=== PATIENT | female | born 1955 | race Caucasian/White ===

== ENCOUNTER → 2024-09-05 | Outpatient (CLI) | payer MEDICARE, BC, SELFPAY ==
--- NOTE | 2024-09-05 12:27 | EKG_ITS ---
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
[2024-09-05 12:32] LABS: Basophils % (Auto) 1 % (0-2.5); Eosinophils # (Auto) 0.1 Thou/mm3 (0.0-0.5); Eosinophils % (Auto) 2 % (0-10); Hematocrit 39.9 % (36.0-46.0); Immature Granulocytes % (Auto) 0 % (0-0); Immature Granulocytes Auto 0.02 Thou/mm3 (0.00-0.00); Lymphocytes # (Auto) 0.8 Thou/mm3 (1.0-4.8); Lymphocytes % (Auto) 16 % (10-50); Mean Corpuscular HGB Conc 32.6 g/dl (31.0-37.0); Mean Corpuscular Hemoglobin 27.6 pg (25.0-35.0); Mean Corpuscular Volume 85 fL (80-100); Monocytes # (Auto) 0.5 Thou/mm3 (0.0-0.8); Monocytes % (Auto) 10 % (0-12); Neutrophils # (Auto) 3.5 Thou/mm3 (1.8-7.7); Neutrophils % (Auto) 71 % (37-80); Nucleated Red Blood Cell % 0 /100 WBC (0); Platelet Count 285 Thou/mm3 (140-440); Red Blood Count 4.71 Miln/mm3 (4.00-5.20)
[2024-09-05 12:40] LABS: Partial Thromboplastin Time 29.3 Seconds (22.0-36.0); Prothrombin Time 10.6 Seconds (9.0-12.2)
[2024-09-05 12:44] LABS: Alanine Aminotransferase 10 U/L (10-49); Albumin, Serum 4.4 gm/dL (3.4-4.8); Albumin/Globulin Ratio 1.6 (1.2-2.2); Alkaline Phosphatase 101 U/L (46-116); Anion Gap 7 (7-16); Aspartate Amino Transferase 19 U/L (0-34); BUN/Creatinine Ratio 19 Ratio (12-20); Bilirubin,Total 0.4 mg/dL (0.3-1.2); Blood Urea Nitrogen 21 mg/dL (9-23); Calcium 10.5 mg/dL (8.3-10.6); Calcium (Corrected) 10.5 mg/dL (8.5-10.1); Carbon Dioxide 32.4 mMol/L (20.0-31.0); Chloride 102 mMol/L (98-107); Creatinine (Component) 1.1 mg/dL (0.6-1.3); Globulin 2.7 gm/dL (2.3-3.5); Glucose 109 mg/dL (74-106); Osmolality,Calculated 285 (275-295); Potassium 4.5 mMol/L (3.4-5.1); Sodium 141 mMol/L (136-145); Total Protein 7.1 gm/dL (5.7-8.2); eGFR 55 See Note
--- NOTE | 2024-09-05 13:30 | XR_ITS ---
Examination: PA lateral chest 2 views TECHNIQUE: Upright AP lateral chest 2 views Exam date and time: September 05, 2024 1343 hours Comparison August 16, 2023 INDICATIONS: Coughing congestion 2 weeks. FINDINGS: Normal heart size Mild hyperexpansion No pneumonia Retrocardiac gastric hernia IMPRESSION: Mild hyperexpansion Negative for pneumonia
== END | disposition home or self-care (01) ==
PROVIDERS: PCP Family Medicine; Referring Provider Family Medicine; Visit Provider Radiology Diagnostic Radiology
DX: Z01.810 Encounter for preprocedural cardiovascular examination (principal); J98.4 Other disorders of lung
CPT/HCPCS: 36415; 71046; 80053; 85025; 85610; 85730; 93005

== ENCOUNTER → 2024-09-16 | Outpatient (CLI) | payer MEDICARE, BC, SELFPAY ==
--- NOTE | 2024-09-16 08:00 | XR_ITS ---
Examination: Breast ultrasound complete, bilateral Date and time of exam: September 16, 2024 0828 hours Indications: BI-RADS 3 probably benign nodule 12:00 position left breast on mammogram March 15, 2024 Technique: Real-time grayscale ultrasonographic imaging bilateral breasts, including all 4 quadrants as well as nipple retroareolar and axillary regions. Findings: No cystic or solid mass involving either breast IMPRESSION: BI-RADS Category 1: Negative study
--- NOTE | 2024-09-16 09:00 | XR_ITS ---
Examination: Diagnostic digital mammography, bilateral Computer aided detection 3-D breast Tomosynthesis, bilateral Date and time of exam: September 16, 2024 0841 hours INDICATIONS: Mammogram August 03, 2023 12 mm nodule 12:00 position left breast Technique: Nonmagnified MLO, CC views of the breasts to been obtained, reconstructed from 3-D Tomosynthesis images. R2 computer aided detection program utilized for evaluation of suspicious masses and/or abnormal calcifications. 3-D Tomosynthesis images obtained. Findings: The breast is heterogeneously dense, which may obscure small masses 12:00 focal asymmetry appears stable compared to July 31, 2023 Benign calcifications Impression: BI-RADS Category 3: Probably benign findings Recommend 1 additional 6 month left mammogram follow-up to document stability of focal asymmetry 12:00 position left breast.
== END | disposition home or self-care (01) ==
LOC: CDIM 08:01
PROVIDERS: PCP Family Medicine; Referring Provider Specialist; Visit Provider Specialist
DX: R92.333 Mammographic heterogeneous density, bilateral breasts (principal); N64.89 Other specified disorders of breast
CPT/HCPCS: 76641; 77062; 77066; G0279

== ENCOUNTER 2024-10-02 22:08 | Emergency (ER) | payer MEDICARE, BC, SELFPAY ==
[2024-10-02 22:09] VITALS: BP 126/75; PULSE 93; RESP 18; TEMP 38.3; O2SAT 94
[2024-10-02 22:10] VITALS: BMI 22.2
[2024-10-02 22:13] VITALS: PULSE 102; O2SAT 94
--- NOTE | 2024-10-02 23:14 | PD.EDRME ---
Rapid Medical Screening Exam RME Arrival date/time: 10/02/24 22:08 69-year-old female with a history of urostomy, bladder cancer, colon cancer presents to the emergency room with a chief complaint of a fever, fatigue x 1 day. I have greeted and performed a focused initial assessment of this patient. A comprehensive ED assessment and evaluation of the patient, analysis of all test results, and completion of the medical decision making process will be conducted by additional ED providers. Chief Complaint: Fever Vital signs: Vital Signs Temperature 101.0 F H 10/02/24 22:09 Pulse Rate 93 10/02/24 22:09 Respiratory Rate 18 10/02/24 22:09 Blood Pressure 126/75 10/02/24 22:09 Pulse Oximetry (%) 94 L 10/02/24 22:09 Oxygen Delivery Method Room Air 10/02/24 22:09 Vital signs reviewed by provider: Yes
[2024-10-02 23:22] VITALS: TEMP 38.3
[2024-10-02] MEDS: ACETAMINOPHEN 500 MG TABLET 1000 MG PO (23:22)
[2024-10-02 23:34] LABS: Lactate (Lactic Acid) 0.7 mMol/L (0.4-2.0)
[2024-10-02 23:42] LABS: Basophils % (Auto) 0 % (0-2.5); Eosinophils # (Auto) 0.2 Thou/mm3 (0.0-0.5); Eosinophils % (Auto) 2 % (0-10); Hematocrit 33.6 % (36.0-46.0); Hemoglobin 10.9 g/dL (12.0-16.0); Immature Granulocytes % (Auto) 0 % (0-0); Immature Granulocytes Auto 0.04 Thou/mm3 (0.00-0.00); Lymphocytes # (Auto) 0.6 Thou/mm3 (1.0-4.8); Lymphocytes % (Auto) 5 % (10-50); Mean Corpuscular HGB Conc 32.4 g/dl (31.0-37.0); Mean Corpuscular Hemoglobin 27.5 pg (25.0-35.0); Mean Corpuscular Volume 85 fL (80-100); Monocytes # (Auto) 0.9 Thou/mm3 (0.0-0.8); Monocytes % (Auto) 8 % (0-12); Neutrophils # (Auto) 8.9 Thou/mm3 (1.8-7.7); Neutrophils % (Auto) 83 % (37-80); Nucleated Red Blood Cell % 0 /100 WBC (0); Platelet Count 314 Thou/mm3 (140-440); RDW Standard Deviation 43.2 fL (36.4-46.3); Red Blood Count 3.97 Miln/mm3 (4.00-5.20); White Blood Count 10.7 Thou/mm3 (3.6-11.0)
[2024-10-03 00:03] LABS: Alanine Aminotransferase 12 U/L (10-49); Albumin, Serum 4.4 gm/dL (3.4-4.8); Albumin/Globulin Ratio 1.6 (1.2-2.2); Alkaline Phosphatase 147 U/L (46-116); Anion Gap 9 (7-16); Aspartate Amino Transferase 14 U/L (0-34); BUN/Creatinine Ratio 11 Ratio (12-20); Bilirubin,Total 0.3 mg/dL (0.3-1.2); Blood Urea Nitrogen 12 mg/dL (9-23); Calcium 9.6 mg/dL (8.3-10.6); Calcium (Corrected) 9.6 mg/dL (8.5-10.1); Chloride 103 mMol/L (98-107); Creatinine (Component) 1.1 mg/dL (0.6-1.3); Estimated Creatinine Clearance 46.5 mL/min (>60); Globulin 2.7 gm/dL (2.3-3.5); Glucose 127 mg/dL (74-106); Osmolality,Calculated 279 (275-295); Potassium 3.9 mMol/L (3.4-5.1); Sodium 139 mMol/L (136-145); Total Protein 7.1 gm/dL (5.7-8.2); eGFR 55 See Note
[2024-10-03 00:06] LABS: Procalcitonin 0.18 ng/ml (0.0-0.49)
[2024-10-03 00:33] VITALS: TEMP 36.9
[2024-10-03 00:36] LABS: Collection Type, Urine Clean Catch
[2024-10-03 00:49] LABS: Bacteria,Urine 2+; Bilirubin,Urine Negative (Negative); Blood,Urine 3+ (Negative); Budding Yeast,Urine Present; Glucose, Urine Negative (Negative); Ketones,Urine Negative (Negative); Leukocyte Esterase,Urine Positive (Negative); Nitrite,Urine Positive (Negative); PH,Urine 6.5 (5.0-7.0); Protein,Urine 1+ (Neg - Trace); RBC,Urine 72 /hpf (0-3); Specific Gravity,Urine 1.013 (1.001-1.035); Squamous Epithelial Cell,Urine < 1 /hpf (0-5); Urobilinogen,Urine Negative mg/dL (0.0-1.0); WBC,Urine 182 /hpf (0-5)
--- NOTE | 2024-10-03 00:49 | PD.EDFEVER ---
ED Fever RME/HPI General Chief Complaint: Fever Stated Complaint: FEVER Arrival date/time: 10/02/24 22:08 Limitations: no limitations RME / HPI RME / HPI Narrative: 10/02/24 22:08 69-year-old female with a history of urostomy, bladder cancer, colon cancer presents to the emergency room with a chief complaint of a fever, fatigue x 1 day. I have greeted and performed a focused initial assessment of this patient. A comprehensive ED assessment and evaluation of the patient, analysis of all test results, and completion of the medical decision making process will be conducted by additional ED providers. ---- Dr. Templeton's Main ED Evaluation: 69yo female with a history of bladder and colon CA, urostomy presents to the ED for a chief complaint of fever x 1 day. The patient was seen by her general practitioner yesterday and placed on antibiotics. The patient states that the suture site appeared red and tender 24 hours ago and seems to be improved right now. Patient denies cough. She states that her urine is always dirty with infection and she is worried that she might be septic at this time because she had a fever. Minimal drainage from the suture site today. No nausea or vomiting or diarrhea. Related Data Home Medications ?Medication ?Instructions ?Recorded ?Confirmed methenamine hippurate 1 gram tablet 0.5 g PO BID 10/11/22 07/13/24 Allergies Allergy/AdvReac Type Severity Reaction Status Date / Time ciprofloxacin AdvReac Intermediate arthralgias Verified 07/12/24 14:12 Review of Systems Review of Systems Systems Reviewed: All systems reviewed, normal except as documented Past Medical History Past Medical History NEUROLOGIC: Positive Neurological Disorders, Brain Tumor and Migraine; Negative Seizures CARDIAC: Positive Cardiac Disorders and Edema; Negative Congestive Heart Failure RESPIRATORY: Positive Bronchitis; Negative Chronic Obstructive Pulmonary Disease (COPD) or Asthma GASTROINTESTINAL: Positive Gastrointestinal Disorders, Obstructive Bowel and Gastroesophageal Reflux Disease; Negative Colorectal Cancer GENITOURINARY: Positive Genitourinary Disorders; Negative Renal Disease REPRODUCTIVE: Negative Endometriosis MUSCULOSKELETAL: Positive Musculoskeletal Disorders and Osteoporosis ENT: Positive Deafness ENDOCRINE: Negative Endocrine Disorders, Diabetes Mellitus Type 1 or Diabetes Mellitus Type 2 HEMATOLOGIC: Positive Blood Disorders and Anemia; Negative Sickle Cell Disease PSYCHO/SOCIAL: Positive Depression and Anxiety OTHER HISTORY: Positive Hospitalization, Falls, Blood Transfusions, Anesthesia Reactions, Organ Transplant, Chemotherapy, Radiation Therapy and Cancer; Negative Blood Transfusion Reaction, Colorectal Cancer or Ovarian Cancer Family History FAMILY HISTORY: Positive Family Cardiac Disorders and Family Cancer Surgical History SURGICAL: Positive Ear Surgery, Abdominal Surgery, Bowel Surgery, Joint Replacement, Hysterectomy and Organ Transplant Social History SMOKING STATUS: Never smoker SECOND HAND EXPOSURE: No SUBSTANCE USE: does not use Physical Exam General Limitations: no limitations General appearance: alert and in no apparent distress Head Head exam: atraumatic Eye Eye exam: Present normal appearance and EOMI ENT ENT exam: Present normal exam, normal oropharynx and mucous membranes moist Neck Neck exam: Present other (Supple) Chest Chest inspection: Present normal inspection and symmetric chest wall rise Respiratory Respiratory exam: Absent respiratory distress or accessory muscle use Cardiovascular Cardiovascular exam: Present regular rate, normal rhythm and normal heart sounds Abdominal Exam Abdominal exam: Present soft and other (Right abdomen with new urostomy with sutures in place. No erythema. Midline scar between the urostomy and colostomy bag is warm to touch and has dried green discharge on the lower end of the wound. No crepitus.) Extremities Exam Extremities exam: Present normal inspection and full ROM Back Exam Back exam: Present normal inspection and full ROM Neurological Exam Neurological exam: Present alert, oriented X3 and CN II-XII intact Psychiatric Psychiatric exam: Present normal affect and normal mood ED Exam Narrative Physical exam: Patient appears fatigued but not septic. General Limitations: Present no limitations General appearance: Present alert and in no apparent distress Head Head exam: Present atraumatic Eye Eye exam: Present normal appearance and EOMI ENT ENT exam: Present normal exam, normal oropharynx and mucous membranes moist Neck Neck exam: Present other (Supple) Chest Chest inspection: Present normal inspection and symmetric chest wall rise Respiratory Respiratory exam: Absent respiratory distress or accessory muscle use Cardiovascular Cardiovascular exam: Present regular rate, normal rhythm and normal heart sounds Abdominal Exam Abdominal exam: Present soft and other (Right abdomen with new urostomy with sutures in place. No erythema. Midline scar between the urostomy and colostomy bag is warm to touch and has dried green discharge on the lower end of the wound. No crepitus.) Extremities Exam Extremities exam: Present normal inspection and full ROM Back Exam Back exam: Present normal inspection and full ROM Neurological Exam Neurological exam: Present alert, oriented X3 and CN II-XII intact Psychiatric Psychiatric exam: Present normal affect and normal mood Expanded Skin Exam Body image: 1. 4 to 5 cm linear area of redness around the midline scar, sutures in place, minimal discharge at the distal portion. Minimal warmth to touch Course Course Course Narrative: 2328: Sepsis alert initiated. Orders made at this time are congruent with ED Adult Sepsis Order List. Re-evaluation is to be completed. CXR is ordered for determining the etiology of fever. Quality Measures Possible source: unknown Blood cultures ordered: no Antibiotic ordered: No Pertinent labs: 10/02/24 23:26 Lactic Acid 0.7 mMol/L (0.4-2.0) Procalcitonin 0.18 ng/ml (0.0-0.49) sepsis Orders Category Date Time Status CXRP [XR chest 1V portable] Stat Exams 10/03/24 00:53 Taken Blood Culture (Lab) Stat Lab 10/02/24 23:13 Received CBC Stat Lab 10/02/24 23:26 Completed CMP [Comprehensive Metabolic Panel] Stat Lab 10/02/24 23:26 Completed Lactate (Lactic Acid) Stat Lab 10/02/24 23:26 Completed Procalcitonin Stat Lab 10/02/24 23:26 Completed UA [Urinalysis] Stat Lab 10/03/24 00:32 Completed Urine Culture Stat Lab 10/03/24 00:32 Received Acetaminophen Tab [Tylenol ES Tab] Med 10/02/24 23:14 Discontinued 1,000 mg PO X1 ONE Sodium Chloride 0.9% 1000 ml [Ns] 1,000 ml Med 10/03/24 02:11 Discontinued IV 999 mls/hr Vital Signs Vital signs: Vital Signs Temperature 101.0 F H 10/02/24 22:09 Pulse Rate 93 10/02/24 22:09 Respiratory Rate 18 10/02/24 22:09 Blood Pressure 126/75 10/02/24 22:09 Pulse Oximetry (%) 94 L 10/02/24 22:09 Oxygen Delivery Method Room Air 10/02/24 22:09 Fever MDM Narrative MDM Narrative:: Differential diagnosis includes cellulitis, abscess, COVID, viral syndrome, pneumonia, UTI. The patient just had a urostomy placed and states that she always has a dirty urine because is coming out of the bag. At this time the patient does not appear febrile however concern for possible atypical pneumonia since O2 sat is 94%. Otherwise she was febrile to 101. Otherwise does not meet sepsis criteria. Patient expresses concern over getting a CT with contrast. Discussed risks versus benefits. I performed a 2-view bedside US, which showed no abscess or cobble-stoning, impression: no cellulitis or abscess. After extensively discussing options with the patient, she states she feels comfortable being discharged home and calling her surgeon in the morning to see if he has any recommendations, and if need be, to return to the ED. Patient data External records reviewed:: [facility] previous records (Per chart review, patient was admitted here on 07/12/24 for an acute febrile illness.) Clinical information provided by:: patient Social determinants that could affect healthcare access:: none Patient has the following chronic illnesses:: GERD, bladder CA, urostomy How is presenting disease/condition affected by chronic disease/condition?: uneffected by Evaluation data The following diagnostics were reviewed and interpreted by me:: lab results and radiology exam(s) Lab and/or radiology exams considered but not ordered:: none Interpretation Summary: Bedside COVID and Influenza are negative, CBC is normal, CMP is normal, Lactic Acid is normal, Procalcitonin is normal, UA is positive for a UTI, according to my interpretation. CXR is negative for any infiltrates, pleural effusions or CHF, according to my interpretation. Medications / Prescriptions Medications or Prescriptions considered but not ordered:: none Medication administrations:: Medication Administration History Discontinued Medications Acetaminophen (Acetaminophen 500 Mg Tablet) 1,000 mg PO X1 ONE Stop: 10/02/24 23:15 Last Admin: 10/02/24 23:22 Dose: 1,000 mg Documented By: TAYLOR Sodium Chloride (Ns) 1,000 mls @ 999 mls/hr IV .Q1H1M ONE Stop: 10/03/24 03:11 Last Infusion: 10/03/24 03:25 Dose: Infused Documented By: Admin: 10/03/24 02:26 Dose: 999 mls/hr Documented By: CB see above Consultations Consultation(s) initiated? (list below): No Diagnosis Fever Differential Diagnosis: cellulitis, community acquired pneumonia and other (abscess, COVID, viral syndrome, UTI) Most likely diagnosis given after review of the tests above:: see below Admission Indicated Admission indicated?: not indicated Admission Request Was there a request for admission?: No Disposition Plan Disposition Plan: Discharge Discharge Attestation Discharge Attestation: The patient and all family members were given an opportunity to ask questions and understood the discharge instructions. Discharge instructions specifically effects, indications for sooner follow up or return to the emergency department, and the expected course of current diagnosis. Patient condition: Stable Discharge Plan Plan Patient Disposition: HOME (Self Care) Patient condition on transfer: Stable Prescriptions/Referrals Prescriptions/Med Rec: No Action methenamine hippurate 1 gram tablet 0.5 g PO BID Hold Instructions: Resume on 02/02/23. 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 Continue your antibiotics per your primary care physician. Please call your surgeon to let him know that you are here to see if he would like to see you sooner than your next appointment. You can take Tylenol 650 mg once or twice a day. Please return to the emergency department if you are having fever greater than 101 despite Tylenol. Stay hydrated with Pedialyte or Gatorade. Print Language: Serbian Stand Alone Forms: [employer] Award Info., Patient Portal Info Letter
[2024-10-03 00:50] LABS: Clarity,Urine Hazy (Clear/Hazy); Color,Urine Yellow (Lt Yel-Yel)
--- NOTE | 2024-10-03 00:53 | XR_ITS ---
Examination: AP chest single view Technique one AP portable upright chest single view Exam date and time: October 03, 2024 at 0120 hrs. Comparison September 05, 2024 Indications: Status post laparotomy urostomy revision with fever today. Findings: Subtle opacity right base No significant cardiac enlargement No pulmonary edema Moderate osteopenia Impression: Suspicious for early right base pneumonia
--- NOTE | 2024-10-03 00:58 | PC.NURSE ---
Pt coming from home for c/o new onset fever. Pt had urostomy revision and exploratory lap done on the . Pt went to her primary care, was started on keflex. Pt states yesterday her surgical site felt hot to touch and was red, states it has since improved but she still wanted to be checked for sepsis. MD Templeton at bedside.
[2024-10-03 01:00] VITALS: BP 111/70; PULSE 82; RESP 18; O2SAT 94
[2024-10-03 02:26] VITALS: BP 120/71; PULSE 77; RESP 17; TEMP 36.7; O2SAT 96
[2024-10-03] MEDS: SODIUM CHLORIDE 0.9% 1000 ML 1,000 ML 999 ML IV (02:26)
[2024-10-03 03:45] VITALS: BP 116/69
== END 2024-10-03 03:50 | disposition home or self-care (01) ==
PROVIDERS: Nurse Practitioner Family; Emergency Provider Emergency Medicine; PCP Family Medicine
DX: R50.82 Postprocedural fever (principal)
CPT/HCPCS: 36415; 71045; 80053; 81001; 83605; 84145; 85025; 87040; 87077; 87086; 87186; 87400; 87811; 96360; 99284; J7030; A9270

== ENCOUNTER → 2024-10-08 | Outpatient (CLI) | payer MEDICARE, BC, SELFPAY ==
[2024-10-08 16:47] LABS: Basophils % (Auto) 0 % (0-2.5); Eosinophils # (Auto) 0.1 Thou/mm3 (0.0-0.5); Eosinophils % (Auto) 1 % (0-10); Hematocrit 31.6 % (36.0-46.0); Hemoglobin 10.3 g/dL (12.0-16.0); Immature Granulocytes % (Auto) 1 % (0-0); Immature Granulocytes Auto 0.11 Thou/mm3 (0.00-0.00); Lymphocytes # (Auto) 0.7 Thou/mm3 (1.0-4.8); Lymphocytes % (Auto) 6 % (10-50); Mean Corpuscular HGB Conc 32.6 g/dl (31.0-37.0); Mean Corpuscular Hemoglobin 27.2 pg (25.0-35.0); Mean Corpuscular Volume 84 fL (80-100); Monocytes # (Auto) 0.9 Thou/mm3 (0.0-0.8); Monocytes % (Auto) 8 % (0-12); Neutrophils # (Auto) 9.7 Thou/mm3 (1.8-7.7); Neutrophils % (Auto) 84 % (37-80); Nucleated Red Blood Cell % 0 /100 WBC (0); Platelet Count 479 Thou/mm3 (140-440); RDW Standard Deviation 42.5 fL (36.4-46.3); Red Blood Count 3.78 Miln/mm3 (4.00-5.20); White Blood Count 11.6 Thou/mm3 (3.6-11.0)
[2024-10-08 17:05] LABS: Anion Gap 10 (7-16); BUN/Creatinine Ratio 16 Ratio (12-20); Blood Urea Nitrogen 19 mg/dL (9-23); Calcium 9.2 mg/dL (8.3-10.6); Carbon Dioxide 29.5 mMol/L (20.0-31.0); Chloride 99 mMol/L (98-107); Creatinine (Component) 1.2 mg/dL (0.6-1.3); Glucose 99 mg/dL (74-106); Osmolality,Calculated 277 (275-295); Potassium 3.8 mMol/L (3.4-5.1); Sodium 138 mMol/L (136-145); eGFR 50 See Note
== END | disposition home or self-care (01) ==
PROVIDERS: PCP Family Medicine; Referring Provider Urology; Visit Provider Urology
DX: N13.5 Crossing vessel and stricture of ureter without hydronephrosis (principal)
CPT/HCPCS: 36415; 80048; 85025

== ENCOUNTER 2024-11-24 11:41 | Emergency (ER) | payer MEDICARE, BC, SELFPAY ==
[2024-11-24 11:44] VITALS: BMI 21.9
[2024-11-24 12:08] VITALS: BP 84/61; BP 93/59; PULSE 87; RESP 20; TEMP 37.1; O2SAT 97; BMI 22.2
--- NOTE | 2024-11-24 12:18 | XR_ITS ---
EXAMINATION: XR chest 2V ORDERING PROVIDER: Forest Rodrigues (MACHINE IRONER), MACHINE IRONER HISTORY: cough TECHNIQUE: PA and Lateral radiographs of the chest. COMPARISON: 10/03/2024, chest radiographs. FINDINGS: Lungs: Clear. Pleura: No pneumothorax or pleural effusion. Cardiomediastinal Silhouette: Similar uncoiled aorta. Soft Tissues/Bones: Normal. IMPRESSION: No acute pulmonary findings.
--- NOTE | 2024-11-24 12:18 | EKG_ITS ---
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1955 Requested By: Forest Rodrigues (LORI) Order Number: [id number] Reading MD: Forest Rodrigues (TRACK REPAIRER) Measurements Intervals [place] Rate: 93 P: 55 CO: 144 QRS: -22 QRSD: 78 T: 36 QT: 346 QTc: 432 Interpretive Statements SINUS RHYTHM POSSIBLE LEFT ATRIAL ENLARGEMENT [-0.1mV P-WAVE IN V1/V2] POSSIBLE RIGHT VENTRICULAR CONDUCTION DELAY [RSR (QR) IN V1/V2] SEPTAL MYOCARDIAL INFARCTION , OF INDETERMINATE AGE [40+ ms Q WAVE IN V1/V2] Compared to ECG 09/05/2024 12:31:41 Sinus bradycardia no longer present Myocardial infarct finding still present /store/S0/[id number]
[2024-11-24 12:30] VITALS: BP 118/61; PULSE 82; RESP 25; TEMP 36.8; O2SAT 95
--- NOTE | 2024-11-24 12:39 | PC.NURSE ---
PT CAME FROM LOBBY FOR HYPOTENSION, PT CAME TO ER FOR FEVER AND LOW OUTPUT FROM UROSTOMY. PT IS [id number].
[2024-11-24 13:00] LABS: Lactate (Lactic Acid) 1.5 mMol/L (0.4-2.0)
[2024-11-24 13:05] VITALS: BP 157/78; PULSE 85; RESP 16; O2SAT 96
[2024-11-24 13:07] LABS: Basophils % (Auto) 0 % (0-2.5); Eosinophils % (Auto) 0 % (0-10); Hemoglobin 11.9 g/dL (12.0-16.0); Immature Granulocytes % (Auto) 0 % (0-0); Immature Granulocytes Auto 0.03 Thou/mm3 (0.00-0.00); Lymphocytes # (Auto) 0.8 Thou/mm3 (1.0-4.8); Lymphocytes % (Auto) 6 % (10-50); Mean Corpuscular HGB Conc 33.1 g/dl (31.0-37.0); Mean Corpuscular Volume 85 fL (80-100); Monocytes # (Auto) 1.4 Thou/mm3 (0.0-0.8); Monocytes % (Auto) 12 % (0-12); Neutrophils # (Auto) 10.2 Thou/mm3 (1.8-7.7); Neutrophils % (Auto) 82 % (37-80); Nucleated Red Blood Cell % 0 /100 WBC (0); Platelet Count 259 Thou/mm3 (140-440); RDW Standard Deviation 45.1 fL (36.4-46.3); Red Blood Count 4.25 Miln/mm3 (4.00-5.20); White Blood Count 12.5 Thou/mm3 (3.6-11.0)
[2024-11-24] MEDS: SODIUM CHLORIDE 0.9% 1000 ML 1,000 ML 999 ML IV (13:09)
--- NOTE | 2024-11-24 13:18 | EDNOTE_ITS ---
ED Fever RME/HPI General Chief Complaint: Fever Stated Complaint: FEVER, LOW OUTPUT FROM UROSTOMY TUBE, Time Seen by Provider: 11/24/24 11:49 Arrival date/time: 11/24/24 11:41 This is a 69-year-old female that comes to the emergency room with complaints of fever and urostomy not draining. 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 Today patient states that she feels dehydrated. She said she took a long walk yesterday and felt like her pouch did not collect any urine. Patient was complaining of some back spasms. Patient states she is having urine coming out of the urostomy today. Patient also complains of having no energy and no appetite. Patient had an episode of vomiting last night along with fever. Limitations: no limitations Related Data Home Medications ?Medication ?Instructions ?Recorded ?Confirmed methenamine hippurate 1 gram tablet 0.5 g PO BID 10/1107/13/24 Previous Rx's ?Medication ?Instructions ?Recorded levofloxacin 750 mg tablet 750 mg PO Q48H #4 tabs 06/12 Allergies Allergy/AdvReac Type Severity Reaction Status Date / Time ciprofloxacin AdvReac Intermediate arthralgias Verified 11/24/24 11:43 Review of Systems Review of Systems Systems Reviewed: All systems reviewed, normal except as documented Past Medical History Past Medical History NEUROLOGIC: Positive Neurological Disorders, Brain Tumor and Migraine; Negative Seizures CARDIAC: Positive Cardiac Disorders and Edema; Negative Congestive Heart Failure RESPIRATORY: Positive Bronchitis; Negative Chronic Obstructive Pulmonary Disease (COPD) or Asthma GASTROINTESTINAL: Positive Gastrointestinal Disorders, Obstructive Bowel and Gastroesophageal Reflux Disease; Negative Colorectal Cancer GENITOURINARY: Positive Genitourinary Disorders; Negative Renal Disease REPRODUCTIVE: Negative Endometriosis MUSCULOSKELETAL: Positive Musculoskeletal Disorders and Osteoporosis ENT: Positive Deafness ENDOCRINE: Negative Endocrine Disorders, Diabetes Mellitus Type 1 or Diabetes Mellitus Type 2 HEMATOLOGIC: Positive Blood Disorders and Anemia; Negative Sickle Cell Disease PSYCHO/SOCIAL: Positive Depression and Anxiety OTHER HISTORY: Positive Hospitalization, Falls, Blood Transfusions, Anesthesia Reactions, Organ Transplant, Chemotherapy, Radiation Therapy and Cancer; Negative Blood Transfusion Reaction, Colorectal Cancer or Ovarian Cancer Family History FAMILY HISTORY: Positive Family Cardiac Disorders and Family Cancer Surgical History SURGICAL: Positive Ear Surgery, Abdominal Surgery, Bowel Surgery, Joint Replacement, Hysterectomy and Organ Transplant Social History SMOKING STATUS: Never smoker SECOND HAND EXPOSURE: No SUBSTANCE USE: does not use Physical Exam General Limitations: no limitations General appearance: alert and in no apparent distress Head Head exam: atraumatic Eye Eye exam: Present normal appearance and EOMI ENT ENT exam: Present normal exam, normal oropharynx and mucous membranes moist Neck Neck exam: Present other (Supple) Chest Chest inspection: Present normal inspection and symmetric chest wall rise Respiratory Respiratory exam: Absent respiratory distress or accessory muscle use Cardiovascular Cardiovascular exam: Present regular rate, normal rhythm and normal heart sounds Abdominal Exam Abdominal exam: Present soft and other (Right abdomen with urostomy. colostomy bag on left side. No erythema. No crepitus. ) Extremities Exam Extremities exam: Present normal inspection and full ROM Back Exam Back exam: Present normal inspection and full ROM Neurological Exam Neurological exam: Present alert, oriented X3 and CN II-XII intact Psychiatric Psychiatric exam: Present normal affect and normal mood Skin Skin exam: Present warm and dry ED Exam General Limitations: Present no limitations General appearance: Present alert and in no apparent distress Head Head exam: Present atraumatic Eye Eye exam: Present normal appearance and EOMI ENT ENT exam: Present normal exam, normal oropharynx and mucous membranes moist Neck Neck exam: Present other (Supple) Chest Chest inspection: Present normal inspection and symmetric chest wall rise Respiratory Respiratory exam: Absent respiratory distress or accessory muscle use Cardiovascular Cardiovascular exam: Present regular rate, normal rhythm and normal heart sounds Abdominal Exam Abdominal exam: Present soft and other (Right abdomen with urostomy. colostomy bag on left side. No erythema. No crepitus. ) Extremities Exam Extremities exam: Present normal inspection and full ROM Back Exam Back exam: Present normal inspection and full ROM Neurological Exam Neurological exam: Present alert, oriented X3 and CN II-XII intact Psychiatric Psychiatric exam: Present normal affect and normal mood Skin Skin exam: Present warm and dry Course Quality Measures none Orders Category Date Time Status Bedside Influenza A&B Antigen Test NOW Care 11/24/24 12:18 Completed Hair Preparer NOW Care 11/24/24 12:19 Completed EKG (ED ONLY) *Do not use* NOW Care 11/24/24 12:19 Completed EKG (ED Only) Stat Exams 11/24/24 12:18 Draft XR chest 2V Stat Exams 11/24/24 12:18 Completed Blood Culture (Lab) Stat Lab 11/24/24 12:50 Completed CBC Stat Lab 11/24/24 12:54 Completed Comprehensive Metabolic Panel Stat Lab 11/24/24 12:54 Completed Lactate (Lactic Acid) Stat Lab 11/24/24 12:54 Completed Procalcitonin Stat Lab 11/24/24 12:54 Completed Troponin I Stat Lab 11/24/24 12:54 Completed Urinalysis Stat Lab 11/24/24 15:06 Completed Urine Culture Stat Lab 11/24/24 15:06 Completed Acetaminophen Tab [Tylenol ES Tab] Med 11/24/24 18:20 Discontinued 1,000 mg PO X1 ONE Levofloxacin/D5w 750Mg Ivpb [Levaquin Ivpb] Med 11/24/24 16:36 Discontinued 750 mg in 150 ml IV X1 Sodium Chloride 0.9% 1000 ml [Ns] 1,000 ml Med 11/24/24 12:18 Discontinued IV 999 mls/hr Vital Signs Vital signs: Vital Signs Temperature 98.8 F 11/24/24 12:08 Pulse Rate 87 11/24/24 12:08 Respiratory Rate 20 11/24/24 12:08 Blood Pressure 93/59 L 11/24/24 12:08 Pulse Oximetry (%) 97 11/24/24 12:08 Oxygen Delivery Method Room Air 11/24/24 12:08 Procedures -ED EKG Interpretation #1: Date of EK11/24/24 Time of EK:23 Rate: 93 Interpretation: Interpreted by me (sinus rhythm possible left atrial enlargement. Rate) EKG Impression: No ectopy, Normal QRS and Normal intervals Fever MDM Narrative MDM Narrative:: Patient's labs show white count of 12.5, hemoglobin and hematocrit of 11.9 and 36, neutrophil count 82, BMP shows an elevated creatinine of 1.4 with a BUN of 16 lactic acid was 1.5 procalcitonin 0.27 troponin less than 0.020 urine shows positive blood nitrites leukocyte Estrace, urine RBCs, urine white blood cells, previous urine culture showed positive for Pseudomonas. Will give patient L evaquin. I did talk to patient about allergy to Cipro. Patient states she was on long-term Cipro a long time ago and she felt like she had had joint pain because she was taking it so long. Patient is willing to take Levaquin for couple days. I explained that this should cover the Pseudomonas. I also talked about doing a CT scan of her abdomen and pelvis. Patient's urostomy working well per patient. It was just an episode yesterday morning where she felt like it was not draining well. Patient reports that she uses a dilator at home and she used 1 last night. Patient's having good amount of urine output through this urostomy. Patient would like to hold off on a CT scan of abdomen pelvis at this time. I explained to her to make sure she makes a follow-up appointment with her primary provider. If symptoms change or worsen explained to patient to come back to the emergency room. Patient verbalizes understanding. Patient feels comfortable with plan of care. Patient data External records reviewed:: [facility] previous records Clinical information provided by:: patient Social determinants that could affect healthcare access:: none Patient has the following chronic illnesses:: se note How is presenting disease/condition affected by chronic disease/condition?: exacerbated by Evaluation data The following diagnostics were reviewed and interpreted by me:: lab results and EKG tracing(s) Lab and/or radiology exams considered but not ordered:: ct abdomen and pelvis Interpretation Summary: see note Medications / Prescriptions Medications or Prescriptions considered but not ordered:: none Medication administrations:: Medication Administration History Discontinued Medications Acetaminophen (Acetaminophen 500 Mg Tablet) 1,000 mg PO X1 ONE Stop: 11/24/24 18:21 Last Admin: 11/24/24 18:24 Dose: 1,000 mg Documented By: BD Sodium Chloride (Ns) 1,000 mls @ 999 mls/hr IV .Q1H1M ONE Stop: 11/24/24 13:18 Last Infusion: 11/24/24 15:38 Dose: Infused Documented By: Admin: 11/24/24 13:09 Dose: 999 mls/hr Documented By: [facility] Levofloxacin/Dextrose (Levaquin Ivpb) 750 mg in 150 mls @ 100 mls/hr IV X1 ONE Stop: 11/24/24 18:05 Last Infusion: 11/24/24 18:18 Dose: Infused Documented By: Admin: 11/24/24 16:44 Dose: 100 mls/hr Documented By: BD see note Consultations Consultation(s) initiated? (list below): No Diagnosis Fever Differential Diagnosis: cellulitis, community acquired pneumonia, pyelonephritis and other (uti ) Most likely diagnosis given after review of the tests above:: uti Admission Indicated Admission indicated?: not indicated Admission Request Was there a request for admission?: No Disposition Plan Disposition Plan: Discharge Discharge Attestation Discharge Attestation: The patient and all family members were given an opportunity to ask questions and understood the discharge instructions. Discharge instructions specifically effects, indications for sooner follow up or return to the emergency department, and the expected course of current diagnosis. Patient condition: Stable Discharge Plan Plan Patient Disposition: HOME (Self Care) Patient condition on transfer: Stable Prescriptions/Referrals Prescriptions/Med Rec: New levofloxacin 750 mg tablet 750 mg PO Q48H Qty: 4 0RF No Action methenamine hippurate 1 gram tablet 0.5 g PO BID Patient Comments: take 1/2 tablet by mouth twice a day Referrals: Santiago Kulkarni MD [Primary Care Provider] - In 1 week Problem List Clinical Impression: UTI (urinary tract infection), Creatinine elevation Patient/Caregiver Discharge Instructions Discharge Activity: activity as tolerated Education Materials: ED CYSTITIS Female Adult Additional Instructions: Follow up with primary provider in 1-2 days. Come back to ED if symptoms change or worsen. Follow-up with urine culture. Print Language: Palestinian Stand Alone Forms: Ema Award Info., Patient Portal Info Letter PA/PARISA Supervising Physician PA/PARISA Supervising Physician: jennifer
[2024-11-24 13:31] LABS: Alanine Aminotransferase 8 U/L (10-49); Albumin, Serum 4.1 gm/dL (3.4-4.8); Albumin/Globulin Ratio 1.6 (1.2-2.2); Alkaline Phosphatase 90 U/L (46-116); Anion Gap 5 (7-16); Aspartate Amino Transferase 14 U/L (0-34); BUN/Creatinine Ratio 11 Ratio (12-20); Bilirubin,Total 0.8 mg/dL (0.3-1.2); Blood Urea Nitrogen 16 mg/dL (9-23); Calcium 9.4 mg/dL (8.3-10.6); Calcium (Corrected) 9.4 mg/dL (8.5-10.1); Carbon Dioxide 28.8 mMol/L (20.0-31.0); Chloride 104 mMol/L (98-107); Creatinine (Component) 1.4 mg/dL (0.6-1.3); Estimated Creatinine Clearance 36.5 mL/min (>60); Globulin 2.6 gm/dL (2.3-3.5); Glucose 105 mg/dL (74-106); Osmolality,Calculated 276 (275-295); Procalcitonin 0.27 ng/ml (0.0-0.49); Sodium 138 mMol/L (136-145); Total Protein 6.7 gm/dL (5.7-8.2); Troponin I < 0.020 ng/mL (0.0-0.045); eGFR 41 See Note
[2024-11-24 15:03] VITALS: BP 151/78; PULSE 92; RESP 16; TEMP 37.3; O2SAT 95
[2024-11-24 15:24] LABS: Collection Type, Urine Clean Catch; Squamous Epithelial Cell,Urine 0 /hpf (0-5)
[2024-11-24 15:47] LABS: Bacteria,Urine Rare; Bilirubin,Urine Negative (Negative); Blood,Urine 2+ (Negative); Color,Urine Yellow (Lt Yel-Yel); Glucose, Urine Negative (Negative); Ketones,Urine Negative (Negative); Leukocyte Esterase,Urine Positive (Negative); Nitrite,Urine Positive (Negative); PH,Urine 6.5 (5.0-7.0); Protein,Urine 1+ (Neg - Trace); RBC,Urine 35 /hpf (0-3); Specific Gravity,Urine 1.011 (1.001-1.035); Urobilinogen,Urine Negative mg/dL (0.0-1.0); WBC,Urine 575 /hpf (0-5)
[2024-11-24 15:49] LABS: Clarity,Urine Turbid (Clear/Hazy)
[2024-11-24] MEDS: LEVOFLOXACIN/D5W 750MG IVPB 750 MG/150 ML BAG 100 MG IV (16:44)
[2024-11-24 18:21] VITALS: BP 135/74; PULSE 96; RESP 16; TEMP 37.9; O2SAT 96
[2024-11-24 18:24] VITALS: TEMP 37.9
[2024-11-24] MEDS: ACETAMINOPHEN 500 MG TABLET 1000 MG PO (18:24)
== END 2024-11-24 18:32 | disposition home or self-care (01) ==
PROVIDERS: Nurse Practitioner Primary Care; Emergency Provider Emergency Medicine; PCP Family Medicine
DX: N39.0 Urinary tract infection, site not specified (principal); R79.89 Other specified abnormal findings of blood chemistry; Z85.42 Personal history of malignant neoplasm of other parts of uterus; Z90.710 Acquired absence of both cervix and uterus
CPT/HCPCS: 36415; 71046; 80053; 81001; 83605; 84145; 84484; 85025; 87040; 87077; 87086; 87186; 87400; 93005; 96361; 96365; 96366; 99284; J1956; J7030; A9270

== ENCOUNTER 2025-03-10 11:00 | Emergency (ER) | payer MEDICARE, BC, SELFPAY ==
[2025-03-10 11:21] VITALS: BP 146/74; PULSE 85; RESP 19; TEMP 36.8; O2SAT 96; BMI 21.9
--- NOTE | 2025-03-10 11:28 | XR_ITS ---
Examination: Nasal bones 3 views TECHNIQUE: Right and left lateral nasal bones erazo facial examination total 3 views Date and time: March 10, 2025 1135 hours INDICATIONS: Injury to the nose yesterday with nose pain. FINDINGS: No acute nasal bone fracture Orbital rims appear intact IMPRESSION: No acute nasal bone fracture
--- NOTE | 2025-03-10 11:57 | EDNOTE_ITS ---
ED General RME/HPI General Chief complaint: General Adult/Misc Complain Stated complaint: WINDOW SASH FELL ON BRIDGE OF NOSE YESTERDAY Time Seen by Provider: 03/10/25 11:25 Arrival date/time: 03/10/25 11:00 70-year-old female presents emergency department today stating that a window fell on her nose patient reports bruising and swelling to the nose Limitations: no limitations Related Data Home Medications ?Medication ?Instructions ?Recorded ?Confirmed methenamine hippurate 1 gram tablet 0.5 g PO BID 10/1107/13/24 Previous Rx's ?Medication ?Instructions ?Recorded levofloxacin 750 mg tablet 750 mg PO Q48H #4 tabs 06/12 Allergies Allergy/AdvReac Type Severity Reaction Status Date / Time ciprofloxacin AdvReac Intermediate arthralgias Verified 03/10/25 11:04 Review of Systems Review of Systems Systems Reviewed: All systems reviewed, normal except as documented Constitutional Constitutional: Reports system reviewed and no additional complaints, except as documented, Denies fever(s) and Denies headache(s) Eyes Eyes: Reports system reviewed and no additional complaints, except as documented and Denies blurry vision ENT Ears, Nose, Mouth, and Throat: Reports system reviewed and no additional complaints, except as documented, Denies headache(s), Denies nasal congestion, Denies nasal discharge and Reports other (Trauma to nose) Cardiovascular Cardiovascular: Reports system reviewed and no additional complaints, except as documented, Denies chest pain and Denies dyspnea Respiratory Respiratory: Reports system reviewed and no additional complaints, except as documented, Denies chest congestion, Denies cough and Denies dyspnea Gastrointestinal Gastrointestinal: Reports system reviewed and no additional complaints, except as documented and Denies abdominal pain Integumentary/Breasts Skin/Breast: Reports system reviewed and no additional complaints, except as documented and Denies rash Neurologic Neurologic: Reports system reviewed and no additional complaints, except as documented, Reports as per HPI and Denies headache(s) Past Medical History Past Medical History NEUROLOGIC: Positive Neurological Disorders, Brain Tumor and Migraine; Negative Seizures CARDIAC: Positive Cardiac Disorders and Edema; Negative Congestive Heart Failure RESPIRATORY: Positive Bronchitis; Negative Chronic Obstructive Pulmonary Disease (COPD) or Asthma GASTROINTESTINAL: Positive Gastrointestinal Disorders, Gastrointestinal Bleed, Obstructive Bowel and Gastroesophageal Reflux Disease; Negative Colorectal Cancer GENITOURINARY: Positive Genitourinary Disorders; Negative Renal Disease REPRODUCTIVE: Negative Endometriosis MUSCULOSKELETAL: Positive Musculoskeletal Disorders and Osteoporosis ENT: Positive Deafness ENDOCRINE: Negative Endocrine Disorders, Diabetes Mellitus Type 1 or Diabetes Mellitus Type 2 HEMATOLOGIC: Positive Blood Disorders and Anemia; Negative Sickle Cell Disease PSYCHO/SOCIAL: Positive Depression and Anxiety OTHER HISTORY: Positive Hospitalization, Falls, Blood Transfusions, Anesthesia R eactions, Organ Transplant, Chemotherapy, Radiation Therapy and Cancer; Negative Blood Transfusion Reaction, Colorectal Cancer or Ovarian Cancer Family History FAMILY HISTORY: Positive Family Cardiac Disorders and Family Cancer Surgical History SURGICAL: Positive Ear Surgery, Abdominal Surgery, Bowel Surgery, Nephrectomy (UROSTOMY), Joint Replacement, Hysterectomy and Organ Transplant Social History SMOKING STATUS: Never smoker SECOND HAND EXPOSURE: No SUBSTANCE USE: does not use ED Exam General Limitations: Present no limitations General appearance: Present alert and in no apparent distress Head Head exam: Present atraumatic, normocephalic and normal inspection Eye Eye exam: Present normal appearance, PERRL and EOMI; Absent conjunctival injection ENT ENT exam: Present normal exam, normal oropharynx and mucous membranes moist Neck Neck exam: Present normal inspection, full ROM and trachea midline Chest Chest inspection: Present normal inspection and symmetric chest wall rise Respiratory Respiratory exam: Present normal lung sounds bilaterally; Absent respiratory distress, wheezes, stridor, accessory muscle use or prolonged expiratory phase Cardiovascular Cardiovascular exam: Present regular rate, normal rhythm and normal heart sounds Abdominal Exam Abdominal exam: Present soft and normal bowel sounds Extremities Exam Extremities exam: Present normal inspection and full ROM Back Exam Back exam: Present normal inspection and full ROM Neurological Exam Neurological exam: Present alert, oriented X3, CN II-XII intact, normal gait and reflexes normal; Absent motor sensory deficit Psychiatric Psychiatric exam: Present normal affect and normal mood Skin Skin exam: Present warm, dry and other (Bruising nose) Course Quality Measures none Orders Category Date Time Status XR nasal bones min 3V Stat Exams 03/10/25 11:28 Completed Vital Signs Vital signs: Vital Signs Temperature 98.2 F 03/10/25 11:21 Pulse Rate 85 03/10/25 11:21 Respiratory Rate 19 03/10/25 11:21 Blood Pressure 146/74 H 03/10/25 11:21 Pulse Oximetry (%) 96 03/10/25 11:21 Oxygen Delivery Method Room Air 03/10/25 11:21 O2 saturation 96% r.a wnl Discharge Plan Plan Patient Disposition: HOME (Self Care) Discharge Disposition comment: Stable Prescriptions/Referrals Prescriptions/Med Rec: No Action methenamine hippurate 1 gram tablet 0.5 g PO BID Patient Comments: take 1/2 tablet by mouth twice a day levofloxacin 750 mg tablet 750 mg PO Q48H Qty: 4 0RF Problem List Clinical Impression: Contusion of face Patient/Caregiver Discharge Instructions Education Materials: Bruises (Contusions) Additional Instructions: Please follow up with your primary care doctor in the next 24-48hrs for any worsening symptoms return here immediately Print Language: Algerian Stand Alone Forms: Ema Award Info., Patient Portal Info Letter PA/SOLID FIBER PASTER OPERATOR Supervising Physician PA/SOLID FIBER PASTER OPERATOR Supervising Physician: Dr. corrales MDM Narrative MDM hospital course: 70-year-old female presents emergency department today stating that a window fell on her nose patient reports bruising and swelling to the nose On exam patient with apparent patient's not appear toxic no acute distress Exam patient has bruising and swelling to the nose no deformity noted Patient discharged home in no distress to follow-up with primary care doctor in the next 24 to 48 hours and for any worsening symptoms to return to the ER immediately Clinical Information Provided by none Medical Records Reviewed None Meds/Rx Considered, not Ordered None Labs/Rad/Tests considered, not Ordered None Chronic Illness/Social Conditions which may negatively complicate care or outcome(s)-explain: None or not applicable EKG EKG not done Lab Interpretation Labs: none Imaging Imaging interpretation: none Medication Administration(s) none Diagnosis Differential diagnosis: Hematoma, laceration, abrasion Differential dx and/or dx ruled out: Hematoma, laceration abrasion Most likely dx, and/or detailed dx discussion: Hematoma Dispositon Disposition: Discharge Home
== END 2025-03-10 12:00 | disposition home or self-care (01) ==
PROVIDERS: Emergency Provider Family Medicine; PCP Family Medicine
DX: S00.33XA Contusion of nose, initial encounter (principal); W20.8XXA Other cause of strike by thrown, projected or falling object, initial encounter
CPT/HCPCS: 70160; 99283

== ENCOUNTER → 2025-05-28 | Outpatient (CLI) | payer MEDICARE, BC, SELFPAY ==
[2025-05-28 16:51] LABS: Basophils # (Auto) 0.0 Thou/mm3 (0.0-0.2); Basophils % (Auto) 1 % (0-2.5); Eosinophils # (Auto) 0.2 Thou/mm3 (0.0-0.5); Eosinophils % (Auto) 3 % (0-10); Hematocrit 35.8 % (36.0-46.0); Hemoglobin 11.4 g/dL (12.0-16.0); Immature Granulocytes Auto 0.02 Thou/mm3 (0.00-0.00); Lymphocytes # (Auto) 1.3 Thou/mm3 (1.0-4.8); Lymphocytes % (Auto) 24 % (10-50); Mean Corpuscular HGB Conc 31.8 g/dl (31.0-37.0); Mean Corpuscular Hemoglobin 27.1 pg (25.0-35.0); Mean Corpuscular Volume 85 fL (80-100); Monocytes # (Auto) 0.5 Thou/mm3 (0.0-0.8); Monocytes % (Auto) 10 % (0-12); Neutrophils # (Auto) 3.4 Thou/mm3 (1.8-7.7); Neutrophils % (Auto) 63 % (37-80); Nucleated Red Blood Cell # 0.00 Thou/mm3 (0.00-0.00); Nucleated Red Blood Cell % 0 /100 WBC (0); Platelet Count 274 Thou/mm3 (140-440); RDW Standard Deviation 44.7 fL (36.4-46.3); Red Blood Count 4.21 Miln/mm3 (4.00-5.20); White Blood Count 5.5 Thou/mm3 (3.6-11.0)
[2025-05-28 17:10] LABS: Alanine Aminotransferase < 7 U/L (10-49); Albumin, Serum 4.0 gm/dL (3.4-4.8); Anion Gap 8 (7-16); Aspartate Amino Transferase 14 U/L (0-34); BUN/Creatinine Ratio 14 Ratio (12-20); Bilirubin,Total 0.2 mg/dL (0.3-1.2); Blood Urea Nitrogen 18 mg/dL (9-23); Calcium 9.3 mg/dL (8.3-10.6); Carbon Dioxide 28.8 mMol/L (20.0-31.0); Chloride 104 mMol/L (98-107); Creatinine (Component) 1.3 mg/dL (0.6-1.3); Glucose 91 mg/dL (74-106); Osmolality,Calculated 283 (275-295); Potassium 4.2 mMol/L (3.4-5.1); Sodium 141 mMol/L (136-145); Total Protein 6.4 gm/dL (5.7-8.2); eGFR 45 See Note
[2025-05-28 17:11] LABS: Albumin/Globulin Ratio 1.7 (1.2-2.2); Alkaline Phosphatase 99 U/L (46-116); Calcium (Corrected) 9.3 mg/dL (8.5-10.1); Cardiac Risk Estimate 2.3 RATIO (3.7-5.6); Cholesterol 181 mg/dL (132-200); Free T4 (Free Thyroxine) 1.18 ng/dL (0.89-1.76); Globulin 2.4 gm/dL (2.3-3.5); HDL Cholesterol 80 mg/dL (40-60); LDL Cholesterol,Calculated 87 mg/dL (0-130); Thyroid Stimulating Hormone 1.22 uIU/mL (0.55-4.78); Triglycerides 71 mg/dL (30-150)
== END | disposition home or self-care (01) ==
LOC: COPL 14:54
PROVIDERS: PCP Family Medicine; Referring Provider Family Medicine; Visit Provider Family Medicine
DX: E78.1 Pure hyperglyceridemia (principal); E03.2 Hypothyroidism due to medicaments and other exogenous substances; D50.0 Iron deficiency anemia secondary to blood loss (chronic); Z13.1 Encounter for screening for diabetes mellitus
CPT/HCPCS: 36415; 80053; 80061; 84439; 84443; 85025

== ENCOUNTER → 2025-05-29 | Outpatient (CLI) | payer MEDICARE, BC, SELFPAY ==
--- NOTE | 2025-05-29 09:30 | XR_ITS ---
Examination: CT abdomen with intravenous contrast CT pelvis with intravenous contrast 2-D coronal reconstructions 2-D sagittal reconstructions Date and time of exam:May 29, 2025 0927 hours INDICATIONS: Diagnosis malignant neoplasm endometrium, diagnosis malignant neoplasm colon 2011, patient has urostomy, colostomy, restaging COMPARISON: July 12, 2024. CTDI: vol (mGy) 6.38 DLP: (mGycm) 303 Technique: Multiple axial sections of the abdomen and pelvis have been obtained. 64 slice high-resolution scanner used. 3 mm axial sections have been obtained, post intravenous injection 60 cc [id number] 2-D sagittal, coronal reconstructions obtained. Low dose protocols were performed. One or more of the following dose reduction techniques were used; automated exposure control, adjustment of the mA and/or KV according to patient size, use of iterative reconstruction technique. Findings: No focal liver lesions No gallstones Spleen is not enlarged No pancreatic mass Mild left moderate right hydronephrosis No ureteral calculi Diverting urostomy Left ileostomy No bowel obstruction No abdominal or pelvic lymphadenopathy Presacral soft tissue is stable compared to the July 12, 2024 exam Prominent osteopenia IMPRESSION: No interval metastatic disease
== END | disposition home or self-care (01) ==
PROVIDERS: PCP Family Medicine; Referring Provider Urology; Visit Provider Urology
DX: N13.5 Crossing vessel and stricture of ureter without hydronephrosis (principal)
CPT/HCPCS: 74177; A4649; Q9967

== ENCOUNTER → 2025-06-09 | Outpatient (CLI) | payer MEDICARE, BC, SELFPAY ==
[2025-06-09 13:20] LABS: Basophils # (Auto) 0.0 Thou/mm3 (0.0-0.2); Basophils % (Auto) 1 % (0-2.5); Eosinophils # (Auto) 0.1 Thou/mm3 (0.0-0.5); Eosinophils % (Auto) 2 % (0-10); Hematocrit 37.4 % (36.0-46.0); Hemoglobin 11.9 g/dL (12.0-16.0); Immature Granulocytes Auto 0.02 Thou/mm3 (0.00-0.00); Lymphocytes # (Auto) 1.0 Thou/mm3 (1.0-4.8); Lymphocytes % (Auto) 18 % (10-50); Mean Corpuscular HGB Conc 31.8 g/dl (31.0-37.0); Mean Corpuscular Hemoglobin 26.9 pg (25.0-35.0); Mean Corpuscular Volume 84 fL (80-100); Monocytes # (Auto) 0.6 Thou/mm3 (0.0-0.8); Monocytes % (Auto) 10 % (0-12); Neutrophils # (Auto) 3.9 Thou/mm3 (1.8-7.7); Neutrophils % (Auto) 69 % (37-80); Nucleated Red Blood Cell # 0.00 Thou/mm3 (0.00-0.00); Nucleated Red Blood Cell % 0 /100 WBC (0); Platelet Count 284 Thou/mm3 (140-440); RDW Standard Deviation 45.1 fL (36.4-46.3); Red Blood Count 4.43 Miln/mm3 (4.00-5.20); White Blood Count 5.6 Thou/mm3 (3.6-11.0)
[2025-06-09 13:48] LABS: Alanine Aminotransferase 10 U/L (10-49); Albumin, Serum 4.0 gm/dL (3.4-4.8); Albumin/Globulin Ratio 1.6 (1.2-2.2); Alkaline Phosphatase 107 U/L (46-116); Anion Gap 6 (7-16); Aspartate Amino Transferase 19 U/L (0-34); BUN/Creatinine Ratio 15 Ratio (12-20); Bilirubin,Total 0.2 mg/dL (0.3-1.2); Blood Urea Nitrogen 19 mg/dL (9-23); Calcium 9.8 mg/dL (8.3-10.6); Calcium (Corrected) 9.8 mg/dL (8.5-10.1); Carbon Dioxide 29.6 mMol/L (20.0-31.0); Chloride 106 mMol/L (98-107); Creatinine (Component) 1.3 mg/dL (0.6-1.3); Globulin 2.5 gm/dL (2.3-3.5); Glucose 98 mg/dL (74-106); Osmolality,Calculated 285 (275-295); Potassium 4.1 mMol/L (3.4-5.1); Sodium 142 mMol/L (136-145); Total Protein 6.5 gm/dL (5.7-8.2); eGFR 45 See Note
== END | disposition home or self-care (01) ==
LOC: COPL 12:09
PROVIDERS: PCP Family Medicine; Referring Provider Urology; Visit Provider Urology
DX: Z93.6 Other artificial openings of urinary tract status (principal)
CPT/HCPCS: 36415; 80053; 85025

== ENCOUNTER → 2025-06-10 | Outpatient (CLI) | payer MEDICARE, BC, SELFPAY ==
[2025-06-10 12:55] LABS: INR 1.0 (0.9-1.3); Partial Thromboplastin Time 28.8 Seconds (22.0-36.0); Prothrombin Time 10.6 Seconds (9.0-12.2)
[2025-06-10 13:24] LABS: Collection Type, Urine Clean Catch; Squamous Epithelial Cell,Urine 0 /hpf (0-5)
[2025-06-10 14:09] LABS: Amorphous Crystals,Urine Present (Absent); Bacteria,Urine Rare; Bilirubin,Urine Negative (Negative); Blood,Urine 3+ (Negative); Clarity,Urine Clear (Clear/Hazy); Color,Urine Lt-Yellow (Lt Yel-Yel); Glucose, Urine Negative (Negative); Ketones,Urine Negative (Negative); Leukocyte Esterase,Urine Positive (Negative); Nitrite,Urine Negative (Negative); PH,Urine 6.0 (5.0-7.0); Protein,Urine Negative (Neg - Trace); RBC,Urine 12 /hpf (0-3); Specific Gravity,Urine 1.008 (1.001-1.035); Urobilinogen,Urine Negative mg/dL (0.0-1.0); WBC,Urine 40 /hpf (0-5)
[2025-06-10 14:27] LABS: Culture Indicated,Urine Yes
== END | disposition home or self-care (01) ==
LOC: COPL 12:05
PROVIDERS: PCP Family Medicine; Referring Provider Family Medicine; Visit Provider Family Medicine
DX: Z01.810 Encounter for preprocedural cardiovascular examination (principal)
CPT/HCPCS: 36415; 81001; 85610; 85730; 87077; 87086; 87186

== ENCOUNTER → 2025-08-21 | Outpatient (CLI) | payer MEDICARE, BC, SELFPAY ==
[2025-08-21 11:05] LABS: Basophils # (Auto) 0.0 Thou/mm3 (0.0-0.2); Basophils % (Auto) 1 % (0-2.5); Eosinophils # (Auto) 0.1 Thou/mm3 (0.0-0.5); Eosinophils % (Auto) 2 % (0-10); Hematocrit 33.6 % (36.0-46.0); Hemoglobin 10.3 g/dL (12.0-16.0); Immature Granulocytes Auto 0.02 Thou/mm3 (0.00-0.00); Lymphocytes # (Auto) 1.0 Thou/mm3 (1.0-4.8); Lymphocytes % (Auto) 16 % (10-50); Mean Corpuscular HGB Conc 30.7 g/dl (31.0-37.0); Mean Corpuscular Hemoglobin 26.3 pg (25.0-35.0); Mean Corpuscular Volume 86 fL (80-100); Monocytes # (Auto) 0.5 Thou/mm3 (0.0-0.8); Monocytes % (Auto) 9 % (0-12); Neutrophils # (Auto) 4.3 Thou/mm3 (1.8-7.7); Neutrophils % (Auto) 72 % (37-80); Nucleated Red Blood Cell # 0.00 Thou/mm3 (0.00-0.00); Nucleated Red Blood Cell % 0 /100 WBC (0); Platelet Count 303 Thou/mm3 (140-440); RDW Standard Deviation 46.7 fL (36.4-46.3); Red Blood Count 3.92 Miln/mm3 (4.00-5.20); White Blood Count 5.9 Thou/mm3 (3.6-11.0)
[2025-08-21 11:19] LABS: Anion Gap 8 (7-16); BUN/Creatinine Ratio 15 Ratio (12-20); Blood Urea Nitrogen 19 mg/dL (9-23); Calcium 9.2 mg/dL (8.3-10.6); Carbon Dioxide 26.0 mMol/L (20.0-31.0); Chloride 109 mMol/L (98-107); Creatinine (Component) 1.3 mg/dL (0.6-1.3); Glucose 60 mg/dL (74-106); Osmolality,Calculated 285 (275-295); Potassium 4.3 mMol/L (3.4-5.1); Sodium 143 mMol/L (136-145); eGFR 45 See Note
== END | disposition home or self-care (01) ==
LOC: COPL 09:29
PROVIDERS: PCP Family Medicine; Referring Provider Urology; Visit Provider Urology
DX: N18.30 Chronic kidney disease, stage 3 unspecified (principal)
CPT/HCPCS: 36415; 80048; 85025

== ENCOUNTER 2025-08-31 17:40 | Inpatient (IN) | payer MEDICARE, BC, SELFPAY ==
[2025-08-31 17:42] VITALS: BMI 20.9
[2025-08-31 18:13] VITALS: BP 104/60; PULSE 100; RESP 23; TEMP 37; O2SAT 96
--- NOTE | 2025-08-31 18:34 | PD.EDRME ---
Rapid Medical Screening Exam E Arrival date/time: 08/31/25 17:40 Chief Complaint: Urogenital-Female Vital signs: Vital Signs Temperature 98.6 F 08/31/25 18:13 Pulse Rate 100 08/31/25 18:13 Respiratory Rate 23 H 08/31/25 18:13 Blood Pressure 104/60 08/31/25 18:13 Pulse Oximetry (%) 96 08/31/25 18:13 Oxygen Delivery Method Room Air 08/31/25 18:13 E Narrative: Intermittent nausea/vomiting x3-4 weeks. Decreased urostomy/colostromy output due to decreased intake. Exam: No acute distress Clinical Impression: Nausea and vomiting
[2025-08-31 18:55] LABS: Basophils # (Auto) 0.1 Thou/mm3 (0.0-0.2); Basophils % (Auto) 1 % (0-2.5); Eosinophils # (Auto) 0.1 Thou/mm3 (0.0-0.5); Eosinophils % (Auto) 1 % (0-10); Hematocrit 37.5 % (36.0-46.0); Hemoglobin 11.7 g/dL (12.0-16.0); Immature Granulocytes Auto 0.03 Thou/mm3 (0.00-0.00); Lymphocytes # (Auto) 0.8 Thou/mm3 (1.0-4.8); Lymphocytes % (Auto) 7 % (10-50); Mean Corpuscular HGB Conc 31.2 g/dl (31.0-37.0); Mean Corpuscular Hemoglobin 26.0 pg (25.0-35.0); Mean Corpuscular Volume 83 fL (80-100); Monocytes # (Auto) 0.9 Thou/mm3 (0.0-0.8); Monocytes % (Auto) 8 % (0-12); Neutrophils # (Auto) 9.3 Thou/mm3 (1.8-7.7); Neutrophils % (Auto) 83 % (37-80); Nucleated Red Blood Cell # 0.00 Thou/mm3 (0.00-0.00); Nucleated Red Blood Cell % 0 /100 WBC (0); Platelet Count 464 Thou/mm3 (140-440); RDW Standard Deviation 44.4 fL (36.4-46.3); Red Blood Count 4.50 Miln/mm3 (4.00-5.20); White Blood Count 11.1 Thou/mm3 (3.6-11.0)
[2025-08-31 19:23] LABS: Alanine Aminotransferase < 7 U/L (10-49); Albumin, Serum 4.8 gm/dL (3.4-4.8); Albumin/Globulin Ratio 1.6 (1.2-2.2); Alkaline Phosphatase 102 U/L (46-116); Anion Gap 12 (7-16); Aspartate Amino Transferase 17 U/L (0-34); BUN/Creatinine Ratio 13 Ratio (12-20); Bilirubin,Total 0.4 mg/dL (0.3-1.2); Blood Urea Nitrogen 19 mg/dL (9-23); Calcium 10.1 mg/dL (8.3-10.6); Calcium (Corrected) 10.1 mg/dL (8.5-10.1); Carbon Dioxide 26.5 mMol/L (20.0-31.0); Chloride 103 mMol/L (98-107); Creatinine (Component) 1.5 mg/dL (0.6-1.3); Estimated Creatinine Clearance 33.4 mL/min (>60); Globulin 3.0 gm/dL (2.3-3.5); Glucose 129 mg/dL (74-106); Lipase 99 U/L (12-53); Osmolality,Calculated 285 (275-295); Potassium 3.8 mMol/L (3.4-5.1); Sodium 141 mMol/L (136-145); Total Protein 7.8 gm/dL (5.7-8.2); eGFR 38 See Note
--- NOTE | 2025-08-31 19:30 | XR_ITS ---
Examination: CT abdomen with intravenous contrast CT pelvis with intravenous contrast 2-D coronal reconstructions 2-D sagittal reconstructions Date and time of exam: August 31, 2025, 2053 hours INDICATIONS: Abdominal pain nausea vomiting beginning 2 weeks ago, diagnosis malignant neoplasm of endometrium, diagnosis malignant neoplasm:, Urostomy colostomy COMPARISON: 05/29/2025 CTDI: vol (mGy) 5.80 DLP: (mGycm) 287 Technique: Multiple axial sections of the abdomen and pelvis have been obtained. 64 slice high-resolution scanner used. 3 mm axial sections have been obtained, post intravenous injection 60 cc [id number] 2-D sagittal, coronal reconstructions obtained. Low dose protocols were performed. One or more of the following dose reduction techniques were used; automated exposure control, adjustment of the mA and/or KV according to patient size, use of iterative reconstruction technique. Findings: Small radiolucencies in the spleen again noted No liver lesion Contracted gallbladder No pancreatic or adrenal mass Colonic sutures Prominent renal scarring with mild bilateral hydronephrosis Air distended and fluid distended small bowel loops prominent in the pelvis Extensive soft tissue in the presacral region again noted Ileostomy No urinary bladder IMPRESSION: Small bowel obstruction pattern, suggest Gastrografin small bowel series follow-up
[2025-08-31] MEDS: ONDANSETRON ODT 4 MG TABRAP PO (19:32)
[2025-08-31] MEDS: SODIUM CHLORIDE 0.9% 1000 ML 1,000 ML 999 ML IV (20:08)
--- NOTE | 2025-08-31 20:53 | EDNOTE_ITS ---
ED Female Urogenital RME/HPI General Chief complaint: Urogenital-Female Stated complaint: ABD PAIN/BACK PAIN Arrival date/time: 08/31/25 17:40 Limitations: no limitations RME / HPI RME / HPI Narrative: Intermittent nausea/vomiting x3-4 weeks. Decreased urostomy/colostromy output due to decreased intake. Dr. Roche?s Main ED Evaluation: 70yo female with a history of endometrial carcinoma with metastasis to colon status post resection, chemoradiation therapy, complicated by colovaginal fistula status post ileostomy and urostomy presents to the ED for complaints of intermittent abdominal pain, nausea, and vomiting for the last 2-3 weeks. Patient reports having a decreased appetite. She has not had her usual urostomy and colostomy output due to not having an appetite. Patient denies any hematemesis, fever, chills, or any other associated symptoms. Patient is not on any medications. Related Data Home Medications ?Medication ?Instructions ?Recorded ?Confirmed methenamine hippurate 1 gram tablet 0.5 g PO BID 10/1107/13/24 Previous Rx's ?Medication ?Instructions ?Recorded levofloxacin 750 mg tablet 750 mg PO Q48H #4 tabs 06/12 Allergies Allergy/AdvReac Type Severity Reaction Status Date / Time ciprofloxacin AdvReac Intermediate arthralgias Verified 03/10/25 11:04 Review of Systems Review of Systems Systems Reviewed: All systems reviewed, normal except as documented Past Medical History Past Medical History NEUROLOGIC: Positive Neurological Disorders, Brain Tumor and Migraine; Negative Seizures CARDIAC: Positive Edema; Negative Cardiac Disorders or Congestive Heart Failure RESPIRATORY: Positive Bronchitis; Negative Chronic Obstructive Pulmonary Disease (COPD) or Asthma GASTROINTESTINAL: Positive Gastrointestinal Disorders, Gastrointestinal Bleed, Obstructive Bowel and Gastroesophageal Reflux Disease; Negative Colorectal Cancer GENITOURINARY: Positive Genitourinary Disorders; Negative Renal Disease REPRODUCTIVE: Negative Endometriosis MUSCULOSKELETAL: Positive Musculoskeletal Disorders and Osteoporosis ENT: Positive Deafness ENDOCRINE: Negative Endocrine Disorders, Diabetes Mellitus Type 1 or Diabetes Mellitus Type 2 HEMATOLOGIC: Positive Blood Disorders and Anemia; Negative Sickle Cell Disease PSYCHO/SOCIAL: Positive Depression and Anxiety OTHER HISTORY: Positive Hospitalization, Falls, Blood Transfusions, Anesthesia Reactions, Organ Transplant, Chemotherapy, Radiation Therapy and Cancer; Negative Blood Transfusion Reaction, Colorectal Cancer or Ovarian Cancer Family History FAMILY HISTORY: Positive Family Cardiac Disorders and Family Cancer Surgical History SURGICAL: Positive Ear Surgery, Abdominal Surgery, Bowel Surgery, Nephrectomy (UROSTOMY), Joint Replacement, Hysterectomy and Organ Transplant Social History SMOKING STATUS: Never smoker SECOND HAND EXPOSURE: No SUBSTANCE USE: does not use ED Exam General Limitations: Present no limitations General appearance: Present alert and in no apparent distress Head Head exam: Present atraumatic Eye Eye exam: Present normal appearance, PERRL and EOMI ENT ENT exam: Present normal exam, normal oropharynx and mucous membranes moist Neck Neck exam: Present normal inspection, full ROM and trachea midline Chest Chest inspection: Present normal inspection and symmetric chest wall rise Respiratory Respiratory exam: Present normal lung sounds bilaterally Cardiovascular Cardiovascular exam: Present regular rate, normal rhythm and normal heart sounds Abdominal Exam Abdominal exam: Present soft and other (colostomy in place with brown watery stool noted; urostomy in place with clear urine); Absent distention, tenderness or guarding Extremities Exam Extremities exam: Present normal inspection and full ROM Neurological Exam Neurological exam: Present alert, oriented X3 and CN II-XII intact Psychiatric Psychiatric exam: Present normal affect and normal mood Skin Skin exam: Present warm, dry, intact and normal color Course Quality Measures none Orders Category Date Time Status CT Screening NOW Care 08/31/25 19:30 Active NPO NOW Care 08/31/25 21:04 Active Diet NPO (NOW) Diet 08/31/25 21:[address] abdomen pelvis w con Stat Exams 08/31/25 19:30 Completed XR small bowel single contrast Stat Exams 08/31/25 21:03 Ordered CBC Stat Lab 08/31/25 18:47 Completed CMP [Comprehensive Metabolic Panel] Stat Lab 08/31/25 18:47 Completed Lipase Stat Lab 08/31/25 18:47 Completed UA [Urinalysis] Stat Lab 08/31/25 18:36 Ordered Ondansetron Odt [Zofran Odt] Med 08/31/25 18:35 Discontinued 4 mg PO X1 ONE Sodium Chloride 0.9% 1000 ml [Ns] 1,000 ml Med 08/31/25 19:30 Discontinued IV 999 mls/hr Vital Signs Vital signs: Vital Signs Temperature 98.6 F 08/31/25 18:13 Pulse Rate 100 08/31/25 18:13 Respiratory Rate 23 H 08/31/25 18:13 Blood Pressure 104/60 08/31/25 18:13 Pulse Oximetry (%) 96 08/31/25 18:13 Oxygen Delivery Method Room Air 08/31/25 18:13 Urogenital - Female MDM Narrative MDM Narrative:: Scribe Attestation: 08/31/25 - Michelle Singleton am scribing for and in the presence of Dr. Roche. Patient is a 70-year-old female with medical history notable for endometrial cancer complicated by recurrent small bowel obstructions currently has a colost tania as well as a urostomy in place that is in the emergency department with concerns for abdominal pain. Vital signs and exam as listed. Concern for small bowel obstruction, pancreatitis, urinary tract infection among others. Prior provider evaluated patient ordered labs CT abdomen pelvis after medication for symptom relief. Labs with evidence of leukocytosis with 11, patient also with creatinine of 1.5. No other significant abnormalities. No significant transaminitis lipase is 99. CT abdomen and pelvis with IV contrast notable for small bowel obstruction. Discussed case with on-call surgeon Dr. Hein. Recommends admission to the hospitalist service. Placed patient n.p.o., order NG tube. Discussed case with hospitalist service, kindly accepts patient for admission. I also ordered Gastrografin study. Total critical care time: Approximately?36?minutes Due to a high probability of clinically significant, life threatening deterioration, the patient required my highest level of preparedness to intervene emergently and I personally spent this critical care time directly and personally managing the patient. This critical care time included obtaining a history; examining the patient; pulse oximetry; ordering and review of studies; arranging urgent treatment with development of a management plan; evaluation of patient's response to treatment; frequent reassessment; and, discussions with other providers. This critical care time was performed to assess and manage the high probability of imminent, life-threatening deterioration that could result in multi-organ failure. It was exclusive of separately billable procedures and treating other patients and teaching time. Please see MDM section and the rest of the note for further information on patient assessment and treatment. 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 Record#: [id number] Birthdate: 1955 Age/Sex: 70 / F Location: [facility] Attending Dr: Ordering Physician: Javier Godinez PA-C Date of Service: 08/31/25 Procedure(s): CT abdomen pelvis w con Accession Number(s): [id number] cc: Minesh Lopez MD; NO PRIMARY/FAMILY,PHYSICIAN; Javier Godinez PA-C~ Examination: CT abdomen with intravenous contrast CT pelvis with intravenous contrast 2-D coronal reconstructions 2-D sagittal reconstructions Date and time of exam: August 31, 2025, 2053 hours INDICATIONS: Abdominal pain nausea vomiting beginning 2 weeks ago, diagnosis malignant neoplasm of endometrium, diagnosis malignant neoplasm:, Urostomy colostomy COMPARISON: 05/29/2025 CTDI: vol (mGy) 5.80 DLP: (mGycm) 287 Technique: Multiple axial sections of the abdomen and pelvis have been obtained. 64 slice high-resolution scanner used. 3 mm axial sections have been obtained, post intravenous injection 60 cc [id number] 2-D sagittal, coronal reconstructions obtained. Low dose protocols were performed. One or more of the following dose reduction techniques were used; automated exposure control, adjustment of the mA and/or KV according to patient size, use of iterative reconstruction technique. Findings: Small radiolucencies in the spleen again noted No liver lesion Contracted gallbladder No pancreatic or adrenal mass Colonic sutures Prominent renal scarring with mild bilateral hydronephrosis Air distended and fluid distended small bowel loops prominent in the pelvis Extensive soft tissue in the presacral region again noted Ileostomy No urinary bladder IMPRESSION: Small bowel obstruction pattern, suggest Gastrografin small bowel series follow-up Dictated By: Minesh Lopez MD Signed By: <Electronically signed by Minesh Lopez MD in OV> 08/31/25 2100 Medications / Prescriptions Medications or Prescriptions considered but not ordered:: none Medication administrations:: Medication Administration History Discontinued Medications Sodium Chloride (Ns) 1,000 mls @ 999 mls/hr IV .Q1H1M ONE Stop: 08/31/25 20:30 Last Admin: 08/31/25 20:08 Dose: 999 mls/hr Documented By: Ondansetron HCl (Ondansetron Odt 4 Mg Tabrap) 4 mg PO X1 ONE; Protocol Stop: 08/31/25 18:36 Last Admin: 08/31/25 19:32 Dose: 4 mg Documented By: CVL see above Consultations Consultation(s) initiated? (list below): Yes Consultation #1 (Physician, Specialty, Details): Discussed case with the resident physician, attending Dr. Navarro from Hospitalist service regarding admission. Discussed patients ED course, exam findings, labs, and radiology results. The Hospitalist agrees to accept the patient for admission. Time: 21:08 Diagnosis Urogenital Female Differential Diagnosis: other (SBO, ileus, dehydration, electrolyte abnormality) Most likely diagnosis given after review of the tests above:: see clinical impression below Admission Indicated Admission indicated?: indicated Admission Request Was there a request for admission?: Yes Admission Attestation Admission request attestation: Discussed case with Hospitalist service regarding admission. Discussed patients ED course, exam findings, labs, and radiology results. The Hospitalist [agrees] to accept the patient for admission. Disposition Plan Disposition Plan: Admit Discharge Plan Plan Patient Disposition: Admit Acute Care w/in Hospital Prescriptions/Referrals Prescriptions/Med Rec: No Action methenamine hippurate 1 gram tablet 0.5 g PO BID Patient Comments: take 1/2 tablet by mouth twice a day levofloxacin 750 mg tablet 750 mg PO Q48H Qty: 4 0RF Referrals: No Primary/Family,Physician [Primary Care Provider] - In 1 week Problem List Clinical Impression: SBO (small bowel obstruction), Complete small bowel obstruction, Colostomy complication Patient/Caregiver Discharge Instructions Print Language: Kittitian Stand Alone Forms: Ema Award Info., Patient Portal Info Letter
--- NOTE | 2025-08-31 21:03 | XR_ITS ---
EXAMINATION: Small bowel series AP abdomen 4 views Date and time: September 01, 2025, 0802 hours INDICATIONS: Abdominal pain and distention this week TECHNIQUE AND FINDINGS: Patient received 120 cc Gastrografin through the orogastric tube 1 minute, 30-minute, 1 hour 2.5-hour delayed films obtained, abdomen film supine These films demonstrate significantly distended small bowel loops particularly in the pelvis IMPRESSION: Small bowel obstruction pattern, Recommend Follow-Up Films 10:00 a.m., 12 noon, 2:00 p.m.
[2025-08-31 21:29] VITALS: BP 167/90; PULSE 65; RESP 16; TEMP 36.9; O2SAT 100
[2025-08-31 22:06] LABS: Collection Type, Urine Clean Catch; Squamous Epithelial Cell,Urine 0 /hpf (0-5); WBC,Urine 0 /hpf (0-5)
--- NOTE | 2025-08-31 22:10 | ESHP_ITS ---
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 Reported that since last ureteral repair, she clears the colostomy bag every 4 to 10 days but since 2 weeks, noted to have only liquidy stool output and decreased amount following with abdominal pain, nausea and vomitings for which she came to the hospital. Bilious vomitings. Denies fever, any other signs or symptoms of infection. Vitals at the time of admission are stable. On physical examination, noted to have pansystolic murmur at the mitral area which she reported to be present for a long time, clean colostomy and urostomy sites with no abdominal distention, tenderness, noted decreased bowel sounds, left non pitting pedal edema secondary to lymphedema from surgery for endometrial cancer. Labs at the time of admission are significant for WBC 11.1, hemoglobin 11.7, platelet count 464. Elevated WBCs likely from hemoconcentration from decreased oral intake. Noted to have creatinine of 1.5, baseline creatinine is 1.3. CT abdomen/pelvis was done that showed chronic sutures, prominent renal scarring with mild bilateral hydronephrosis, distended and fluid distended small bowel loops prominent in the pelvis with small bowel obstruction pattern. Given a liter of bolus in the ED, ondansetron. Ordered NG tube placement followed by bowel series. Will continue IV maintenance fluids, ondansetron as needed. Explained patient about her condition. Will watch for bowel movements # Small bowel obstruction # History of chemoradiation, multiple ureteral repairs, diverting colostomy - Likely from multiple abdominal surgeries - Bolus of LR is given and started on maintenance fluids - N.p.o. - NG tube placement and small bowel series - If does not improve, will consult general surgeon # Prerenal BERTRAND on CKD stage III - Baseline creatinine is 1.3 as of 08/21/2025 -Creatinine at the time of admission is 1.5 - Will continue maintenance fluids and monitor renal panel. #Leukocytosis, likely from Hemoconcentration -Monitor CBC I have personally seen and examined the patient, agree with residents assessment and plan Patient plan of care was discussed with the attending physician, Dr. Melanie Gonzalez, PGY2 Documentation for date of: 08/31/25 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 The patient had an episode of vomiting the morning of 08/28/2025 and the evening of 08/31/2025 prior to presentation.? She mentioned decreased colostomy and urostomy output, loss of appetite, and gnawing midepigastric pain not tender to palpation.? She also endorsed feeling a little overheated earlier in the day of presentation but denied chills, chest pain, shortness of breath, or body aches. She was found to have a small bowel obstruction pattern on CTAP. Patient was admitted for small bowel obstruction. ED Course: * Significant vitals on arrival: Respiratory rate 23, remainder of vitals within normal limits * Significant labs on arrival: WBC 11.1, hemoglobin 11.7, creatinine 1.5, lipase 99. * Imaging: CTAP with contrast showed prominent renal scarring with mild bilateral hydronephrosis, air distended fluid distended small bowel loops, extensive soft tissue in the presacral region and small radiolucencies in the spleen both seen on previous CTAP, small bowel obstruction pattern. * ED intervention: The patient was given a one-time oral dose of 4 mg ondansetron, 1 L normal saline bolus, and 0.5 mg lorazepam. History: * Past medical history: As above in HPI * Surgical history: Colon resection as above, hip replacement * Family history: A-fib * Social history: Denies alcohol, tobacco, or illicit drug use Allergies: * Ciprofloxacin * Bactrim, no specified allergic reaction but patient mentioned that it causes her to experience A-fib Home Medications: (Pending Med Rec) * Methenamine 0.5 g PO BID CODE STATUS: Full Code Review of Systems Review of Systems Narrative Review of Systems: Review of Systems: * General: Patient endorsed feeling overheated. Denies fevers, chills. * HEENT: Denies headache, congestion, or sore throat. * Cardiac: Denies chest pain or palpitations. * Pulmonary: Denies shortness of breath or cough. * GI: 2 episodes of vomiting over the past 2 days, denies hemoptysis. Decreased output through colostomy. Patient endorsed a constant gnawing midepigastric pain, area is nontender to palpation. * : Decreased output through urostomy. * MSK: Denies pain in the extremities, joints, or myalgias. * Neuro: Denies weakness, numbness, vision changes, or speech difficulty. Exam Vital Signs Temp Pulse Resp BP Pulse Ox O2 Del Method 98.4 F 65 16 167/90 H 100 Room Air 08/31/25 21:29 08/31/25 21:29 08/31/25 21:29 08/31/25 21:29 08/31/25 21:29 08/31/25 21:29 Narrative Exam General: Slight cachexia, collarbone visualized, slight temporal wasting. Awake and in no acute distress. Conversational. Neurologic: GCS 15. Alert and oriented x3, no gross neurological deficit, and patient able to move all 4 extremities. HEENT: Normocephalic, atraumatic, mucous membranes dry. Pupils reactive to light. Heart: Grade 1/6 systolic ejection murmur left sternal border. Regular rate and rhythm, normal S1 and S2. Lungs: Clear to auscultation bilaterally with no wheezing or crackles. Abdomen: Colostomy and urostomy bag in place, colostomy bag is opaque. Urostomy bag has clear output. Otherwise abdomen is soft, nondistended, nontender. No guarding or rebound tenderness. Extremities: Left ankle slightly more swollen than right ankle, no significant edema. 2+ radial and dorsalis pedis pulses bilaterally. Skin: Warm. Dry. No rash or ecchymoses. Results: Labs 09/01/25 04:42 08/31/25 18:47 Labs: Short CBC 08/31/25 Range/Units 18:47 WBC 11.1 H (3.6-11.0) Thou/mm3 Hgb 11.7 L (12.0-16.0) g/dL Hct 37.5 (36.0-46.0) % Plt Count 464 H D (140-440) Thou/mm3 BMP 08/31/25 18:47 Sodium 141 Potassium 3.8 Chloride 103 Carbon Dioxide 26.5 BUN 19 Creatinine 1.5 H Glucose 129 H Calcium 10.1 Liver Function 08/31/25 Range/Units 18:47 Total Bilirubin 0.4 (0.3-1.2) mg/dL AST 17 (0-34) U/L ALT < 7 L (10-49) U/L Alkaline Phosphatase 102 (46-116) U/L Albumin 4.8 (3.4-4.8) gm/dL Quality Measures Quality Measures VTE prophylaxis Advance care planning discussed with:: patient Medications Home Medications and Allergies Home Medications ?Medication ?Instructions ?Recorded ?Confirmed ?Type No Known Home Medications 08/31/2508/18 History Allergies Allergy/AdvReac Type Severity Reaction Status Date / Time ciprofloxacin AdvReac Intermediate arthralgias Verified 03/10/25 11:04 Visit Medications Discontinued Medications Sodium Chloride (Ns) 1,000 mls @ 999 mls/hr IV .Q1H1M ONE Stop: 08/31/25 20:30 Last Infusion: 08/31/25 21:29 Dose: Infused Lorazepam (Lorazepam 0.5 Mg Tablet) 0.5 mg SL X1 ONE Stop: 08/31/25 21:25 Last Admin: 08/31/25 21:48 Dose: Not Given Lorazepam (Lorazepam 0.5 Mg Tablet) 0.5 mg PO X1 ONE Stop: 08/31/25 21:42 Last Admin: 08/31/25 21:47 Dose: 0.5 mg Ondansetron HCl (Ondansetron Odt 4 Mg Tabrap) 4 mg PO X1 ONE; Protocol Stop: 08/31/25 18:36 Last Admin: 08/31/25 19:32 Dose: 4 mg Assessment & Plan Plan Summary: 70-year-old female past medical history endometrial carcinoma with metastasis to the colon status post resection, chemoradiation, 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 She was found to have a small bowel obstruction pattern on CTAP. Patient was admitted for small bowel obstruction. #Small Bowel Obstruction #Leukocytosis * Patient presented with 2-day history of nausea and vomiting, total of 2 episodes * Patient also presented with a gnawing constant midepigastric pain, it was nontender to palpation, likely secondary to retching * CTAP showed SBO pattern * Patient also endorsed decreased colostomy and urostomy output * Likely secondary to surgical adhesions * Mild leukocytosis WBC 11.1, likely acute phase reaction, no suspicious for infection at this time, afebrile Plan: * N.p.o. * NG tube to low intermittent suction * Gastrografin series ordered * General surgery consult after small bowel series #BERTRAND * Patient presented with a creatinine of 1.5, baseline looks around 1.2 * Likely secondary to decreased oral intake versus dehydration versus volume loss Plan: * Patient received a liter bolus of NS in the ED, expected to improve, will encourage oral intake after SBO resolution? #Chronic Normocytic Anemia * Patient presented with hemoglobin 11.7 * Appears to be ongoing issue, MCV normal * Likely secondary to anemia of chronic disease secondary to endometrial cancer versus nutritional deficiency * May also be dilutional because the patient received fluids in the ED * No concern for active bleed at this time Plan: * No direct intervention at this time * Transfuse if hemoglobin below 7 #Endometrial cancer with metastasis to colon #Status post hysterectomy in 2011 #Status post colectomy, colostomy #Status post urostomy * Patient endorsed decreased output from her colostomy and urostomy * Has a history of recurrent UTIs * No suspicion for any infection at this time Plan: * No direct intervention at this time Hospital Maintenance: DVT ppx: SCDs GI ppx: Pantoprazole 40 mg IV daily Diet: N.p.o. IV lines: Peripheral IVs Renteria: Urostomy Code status: Full code Dispo: MedSurg, N.P.O., NG tube planned, Gastrografin small bowel series planned. Patient was seen and discussed with my attending physician Dr. Melanie PUTNAM and my senior resident Dr. Carlos PUTNAM PGY-2. Adonis Linn DO PGY-1. Attending Provider Attestation/Addendum After examination of the patient and review of the clinical data I feel that this patient needs admission to the hospital for further treatment/evaluation. Plan of care discussed with patient and is in agreement. I Lane Navarro MD, attest that I was physically present for malik portions of evaluation, and examined patient, labs and imagings and plan of care were discussed with IM residents team, and I agree with the findings and plans documented above.
--- NOTE | 2025-08-31 22:10 | PD.RESHP ---
Documentation for date of: 08/31/25 [facility] History of Present Illness History of present illness: HPI: 70-year-old female past medical history endometrial carcinoma with metastasis to the colon status post resection, chemoradiation, 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? The patient had an episode of vomiting the morning of 08/28/2025 and the evening of 08/31/2025 prior to presentation.? She mentioned decreased colostomy and urostomy output, loss of appetite, and gnawing midepigastric pain not tender to palpation.? She also endorsed feeling a little overheated earlier in the day of presentation but denied chills, chest pain, shortness of breath, or body aches. She was found to have a small bowel obstruction pattern on CTAP. Patient was admitted for small bowel obstruction. ED Course: Significant vitals on arrival: Respiratory rate 23, remainder of vitals within normal limits Significant labs on arrival: WBC 11.1, hemoglobin 11.7, creatinine 1.5, lipase 99. Imaging: CTAP with contrast showed prominent renal scarring with mild bilateral hydronephrosis, air distended fluid distended small bowel loops, extensive soft tissue in the presacral region and small radiolucencies in the spleen both seen on previous CTAP, small bowel obstruction pattern. ED intervention: The patient was given a one-time oral dose of 4 mg ondansetron, 1 L normal saline bolus, and 0.5 mg lorazepam. History: Past medical history: As above in HPI Surgical history: Colon resection as above, hip replacement Family history: A-fib Social history: Denies alcohol, tobacco, or illicit drug use Allergies: Ciprofloxacin Bactrim, no specified allergic reaction but patient mentioned that it causes her to experience A-fib Home Medications: (Pending Med Rec) Methenamine 0.5 g PO BID CODE STATUS: Full Code Review of Systems Review of Systems Narrative Review of Systems: Review of Systems: General: Patient endorsed feeling overheated. Denies fevers, chills. HEENT: Denies headache, congestion, or sore throat. Cardiac: Denies chest pain or palpitations. Pulmonary: Denies shortness of breath or cough. GI: 2 episodes of vomiting over the past 2 days, denies hemoptysis. Decreased output through colostomy. Patient endorsed a constant gnawing midepigastric pain, area is nontender to palpation. : Decreased output through urostomy. MSK: Denies pain in the extremities, joints, or myalgias. Neuro: Denies weakness, numbness, vision changes, or speech difficulty. Exam Vital Signs Temp Pulse Resp BP Pulse Ox O2 Del Method 98.4 F 65 16 167/90 H 100 Room Air 08/31/25 21:08/31/25 21:08/31/25 21:29 08/31/25 21:29 08/31/25 21:08/31/25 21:29 Narrative Exam General: Slight cachexia, collarbone visualized, slight temporal wasting. Awake and in no acute distress. Conversational. Neurologic: GCS 15. Alert and oriented x3, no gross neurological deficit, and patient able to move all 4 extremities. HEENT: Normocephalic, atraumatic, mucous membranes dry. Pupils reactive to light. Heart: Grade 1/6 systolic ejection murmur left sternal border. Regular rate and rhythm, normal S1 and S2. Lungs: Clear to auscultation bilaterally with no wheezing or crackles. Abdomen: Colostomy and urostomy bag in place, colostomy bag is opaque. Urostomy bag has clear output. Otherwise abdomen is soft, nondistended, nontender. No guarding or rebound tenderness. Extremities: Left ankle slightly more swollen than right ankle, no significant edema. 2+ radial and dorsalis pedis pulses bilaterally. Skin: Warm. Dry. No rash or ecchymoses. Results: Labs 09/01/25 04:42 08/31/25 18:47 Labs: Short CBC 08/31/25 Range/Units 18:47 WBC 11.1 H (3.6-11.0) Thou/mm3 Hgb 11.7 L (12.0-16.0) g/dL Hct 37.5 (36.0-46.0) % Plt Count 464 H D (140-440) Thou/mm3 BMP 08/31/25 18:47 Sodium 141 Potassium 3.8 Chloride 103 Carbon Dioxide 26.5 BUN 19 Creatinine 1.5 H Glucose 129 H Calcium 10.1 Liver Function 08/31/25 Range/Units 18:47 Total Bilirubin 0.4 (0.3-1.2) mg/dL AST 17 (0-34) U/L ALT < 7 L (10-49) U/L Alkaline Phosphatase 102 (46-116) U/L Albumin 4.8 (3.4-4.8) gm/dL Quality Measures Quality Measures VTE prophylaxis Advance care planning discussed with:: patient Medications Home Medications and Allergies Home Medications ?Medication ?Instructions ?Recorded ?Confirmed ?Type No Known Home Medications 08/31/25 08/31/25 History Allergies Allergy/AdvReac Type Severity Reaction Status Date / Time ciprofloxacin AdvReac Intermediate arthralgias Verified 03/10/25 11:04 Visit Medications Discontinued Medications Sodium Chloride (Ns) 1,000 mls @ 999 mls/hr IV .Q1H1M ONE Stop: 08/31/25 20:30 Last Infusion: 08/31/25 21:29 Dose: Infused Lorazepam (Lorazepam 0.5 Mg Tablet) 0.5 mg SL X1 ONE Stop: 08/31/25 21:25 Last Admin: 08/31/25 21:48 Dose: Not Given Lorazepam (Lorazepam 0.5 Mg Tablet) 0.5 mg PO X1 ONE Stop: 08/31/25 21:42 Last Admin: 08/31/25 21:47 Dose: 0.5 mg Ondansetron HCl (Ondansetron Odt 4 Mg Tabrap) 4 mg PO X1 ONE; Protocol Stop: 08/31/25 18:36 Last Admin: 08/31/25 19:32 Dose: 4 mg Assessment & Plan Plan Summary: 70-year-old female past medical history endometrial carcinoma with metastasis to the colon status post resection, chemoradiation, 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 She was found to have a small bowel obstruction pattern on CTAP. Patient was admitted for small bowel obstruction. #Small Bowel Obstruction #Leukocytosis Patient presented with 2-day history of nausea and vomiting, total of 2 episodes Patient also presented with a gnawing constant midepigastric pain, it was nontender to palpation, likely secondary to retching CTAP showed SBO pattern Patient also endorsed decreased colostomy and urostomy output Likely secondary to surgical adhesions Mild leukocytosis WBC 11.1, likely acute phase reaction, no suspicious for infection at this time, afebrile Plan: N.p.o. NG tube to low intermittent suction Gastrografin series ordered General surgery consult after small bowel series #BERTRAND Patient presented with a creatinine of 1.5, baseline looks around 1.2 Likely secondary to decreased oral intake versus dehydration versus volume loss Plan: Patient received a liter bolus of NS in the ED, expected to improve, will encourage oral intake after SBO resolution? #Chronic Normocytic Anemia Patient presented with hemoglobin 11.7 Appears to be ongoing issue, MCV normal Likely secondary to anemia of chronic disease secondary to endometrial cancer versus nutritional deficiency May also be dilutional because the patient received fluids in the ED No concern for active bleed at this time Plan: No direct intervention at this time Transfuse if hemoglobin below 7 #Endometrial cancer with metastasis to colon #Status post hysterectomy in 2011 #Status post colectomy, colostomy #Status post urostomy Patient endorsed decreased output from her colostomy and urostomy Has a history of recurrent UTIs No suspicion for any infection at this time Plan: No direct intervention at this time Hospital Maintenance: DVT ppx: SCDs GI ppx: Pantoprazole 40 mg IV daily Diet: N.p.o. IV lines: Peripheral IVs Ernteria: Urostomy Code status: Full code Dispo: MedSurg, N.P.O., NG tube planned, Gastrografin small bowel series planned. Patient was seen and discussed with my attending physician Dr. Melanie PUTNAM and my senior resident Dr. Carlos PUTNAM PGY-2. Adonis Linn DO PGY-1. Attending Provider Attestation/Addendum After examination of the patient and review of the clinical data I feel that this patient needs admission to the hospital for further treatment/evaluation. Plan of care discussed with patient and is in agreement. I Lane Navarro MD, attest that I was physically present for malik portions of evaluation, and examined patient, labs and imagings and plan of care were discussed with IM residents team, and I agree with the findings and plans documented above.
[2025-08-31 22:12] VITALS: O2SAT 97
[2025-08-31 22:12] LABS: Bilirubin,Urine Negative (Negative); Blood,Urine Trace (Negative); Clarity,Urine Turbid (Clear/Hazy); Color,Urine Yellow (Lt Yel-Yel); Glucose, Urine Negative (Negative); Ketones,Urine Negative (Negative); Leukocyte Esterase,Urine Positive (Negative); Nitrite,Urine Positive (Negative); PH,Urine 6.5 (5.0-7.0); Protein,Urine 1+ (Neg - Trace); RBC,Urine < 1 /hpf (0-3); Specific Gravity,Urine 1.022 (1.001-1.035); Urobilinogen,Urine Negative mg/dL (0.0-1.0)
--- NOTE | 2025-08-31 22:21 | XR_ITS ---
EXAMINATION: AP chest single view TECHNIQUE: AP portable chest single view Date and time: August 31, 2025, 10:28 p.m., comparison November 24, 2024 INDICATIONS: Post orogastric tube placement FINDINGS: Orogastric tube tip in the stomach satisfactory position Mild enlargement left ventricle No pneumonia or pulmonary edema Prominent osteopenia IMPRESSION: Orogastric tube in the stomach satisfactory position
[2025-08-31 23:04] VITALS: BP 158/90; PULSE 73; RESP 18; O2SAT 96
[2025-08-31 23:15] VITALS: BP 158/90; PULSE 92; RESP 18; TEMP 36.8; O2SAT 99
[2025-08-31] MEDS: ONDANSETRON INJ 2 MG/ML INJ 2 ML 4 MG IVP (23:18)
[2025-08-31 23:38] VITALS: BMI 20.9
[2025-08-31] MEDS: RINGERS LACTATED 1000 ML 1,000 ML 75 ML IV (23:51)
[2025-09-01] VITALS (9 sets, daily range): BP systolic 136–152; BP diastolic 73–98; PULSE 65–94; RESP 16–98; TEMP 36.1–36.8; O2SAT 95–98
--- NOTE | 2025-09-01 | XR_ITS ---
Examination: Abdomen AP single view Technique: AP portable supine abdomen, single view Exam date and time: September 01, 2025, 1335 hours INDICATIONS: Abdominal pain and distention this week, 8-hour delayed film for small bowel series. FINDINGS: Contrast is now present almost entirely in the colon IMPRESSION: Negative for small bowel obstruction, no further films are needed
[2025-09-01 06:42] LABS: Basophils # (Auto) 0.0 Thou/mm3 (0.0-0.2); Basophils % (Auto) 1 % (0-2.5); Eosinophils # (Auto) 0.1 Thou/mm3 (0.0-0.5); Eosinophils % (Auto) 1 % (0-10); Hematocrit 31.7 % (36.0-46.0); Hemoglobin 9.8 g/dL (12.0-16.0); Immature Granulocytes Auto 0.01 Thou/mm3 (0.00-0.00); Lymphocytes # (Auto) 1.0 Thou/mm3 (1.0-4.8); Lymphocytes % (Auto) 16 % (10-50); Mean Corpuscular HGB Conc 30.9 g/dl (31.0-37.0); Mean Corpuscular Hemoglobin 26.1 pg (25.0-35.0); Mean Corpuscular Volume 85 fL (80-100); Monocytes # (Auto) 0.7 Thou/mm3 (0.0-0.8); Monocytes % (Auto) 11 % (0-12); Neutrophils # (Auto) 4.6 Thou/mm3 (1.8-7.7); Neutrophils % (Auto) 71 % (37-80); Nucleated Red Blood Cell # 0.00 Thou/mm3 (0.00-0.00); Nucleated Red Blood Cell % 0 /100 WBC (0); Platelet Count 364 Thou/mm3 (140-440); RDW Standard Deviation 45.6 fL (36.4-46.3); Red Blood Count 3.75 Miln/mm3 (4.00-5.20); White Blood Count 6.4 Thou/mm3 (3.6-11.0)
[2025-09-01 07:46] LABS: Alanine Aminotransferase < 7 U/L (10-49); Albumin, Serum 3.9 gm/dL (3.4-4.8); Albumin/Globulin Ratio 1.7 (1.2-2.2); Alkaline Phosphatase 79 U/L (46-116); Anion Gap 9 (7-16); Aspartate Amino Transferase 15 U/L (0-34); BUN/Creatinine Ratio 12 Ratio (12-20); Bilirubin,Total 0.3 mg/dL (0.3-1.2); Blood Urea Nitrogen 16 mg/dL (9-23); Calcium 8.7 mg/dL (8.3-10.6); Calcium (Corrected) 8.8 mg/dL (8.5-10.1); Carbon Dioxide 26.7 mMol/L (20.0-31.0); Chloride 109 mMol/L (98-107); Creatinine (Component) 1.3 mg/dL (0.6-1.3); Estimated Creatinine Clearance 38.6 mL/min (>60); Globulin 2.3 gm/dL (2.3-3.5); Glucose 90 mg/dL (74-106); Magnesium 1.6 mg/dL (1.6-2.6); Osmolality,Calculated 289 (275-295); Potassium 4.0 mMol/L (3.4-5.1); Sodium 145 mMol/L (136-145); Total Protein 6.2 gm/dL (5.7-8.2); eGFR 45 See Note
--- NOTE | 2025-09-01 10:39 | ESPR_ITS ---
<Statement entered by Yazmin Kerr MD - 09/11/25 08:25> I reviewed above note and agree with findings and plans. I have also personally examined the patient with medicine team and went over assessment and plan with medical team including improvement intern and resident physician. <Statement entered by Jame Callaway MD - 09/02/25 13:33> Patient was examined and case was reviewed with team including attending physician. Note reviewed, I agree with most of its contents and agree with the patient's care. Jame Callaway MD PGY-2 Documentation for date of: 09/01/25 Subjective Subjective Interval history: Patient was evaluated at the bedside this morning. She is currently undergoing a small bowel series and reports good output from her colostomy, with the bag having been changed twice already today. The NG tube remains in place, and she denies any complaints at this time. Will continue to monitor small bowel series results. If SBO resolves then will start patient on clear liquid diet and advance as tolerated. If SBO does not improve, will consult general surgeon. Exam Vital Signs Temp Pulse Resp BP Pulse Ox O2 Del Method 97.9 F 66 16 143/93 H 96 Room Air 09/01/25 08:00 09/01/25 08:00 09/01/25 08:00 09/01/25 08:00 09/01/25 08:00 09/01/25 08:00 Narrative Exam Physical Exam General: Slight cachexia, collarbone visualized, slight temporal wasting. Awake and in no acute distress. Conversational and non-toxic appearing. HEENT: Normocephalic, atraumatic, extraocular movements intact, pupils equal and reactive to light. Heart: Grade 1/6 systolic ejection murmur on left sternal boder. Regular rate and rhythm. No murmurs, rubs or gallops. Lungs: Clear to auscultation with no wheezing or crackles bilaterally. Non- labored respirations, symmetric chest rise, no use of accessory muscles. Abdomen: Colostomy and urostomy bag in place. Colostomy bag with good activity. Urostomy bag has clear output. Otherwise abdomen is soft, nondistended, nontender. No guarding or rebound tenderness. Neurologic: Alert and oriented x3, no gross neurological deficit, and patient able to move all 4 extremities. Extremities: Left ankle slightly more swollen than right ankle, no significant edema. 2+ radial and dorsalis pedis pulses bilaterally. Skin: Warm and dry without rashes. Psychiatric: Cooperative, appropriate mood and affect. Objective Labs 09/01/25 04:42 09/01/25 04:42 Labs: Laboratory Results - last 24 hr 08/31/25 08/31/25 09/01/25 18:47 21:23 04:42 WBC 11.1 H 6.4 D RBC 4.50 3.75 L Hgb 11.7 L 9.8 L Hct 37.5 31.7 L MCV 83 85 MCH 26.0 26.1 MCHC 31.2 30.9 L RDW Std Deviation 44.4 45.6 Plt Count 464 H D 364 D Neut % (Auto) 83 H 71 Lymph % (Auto) 7 L 16 [place] % (Auto) 8 11 Eos % (Auto) 1 1 Baso % (Auto) 1 1 Neut # (Auto) 9.3 H 4.6 Lymph # (Auto) 0.8 L 1.0 [place] # (Auto) 0.9 H 0.7 Eos # (Auto) 0.1 0.1 Baso # (Auto) 0.1 0.0 Immature Gran # (Auto) 0.03 H 0.01 H Absolute Nucleated RBC 0.00 0.00 Immature Gran % 0 0 Nucleated RBC % 0 0 Sodium 141 145 Potassium 3.8 4.0 Chloride 103 109 H Carbon Dioxide 26.5 26.7 Anion Gap 12 9 BUN 19 16 Creatinine 1.5 H 1.3 Estim Creat Clear Calc 33.4 L 38.6 L eGFR 38 L 45 L BUN/Creatinine Ratio 13 12 Glucose 129 H 90 Calculated Osmolality 285 289 Calcium 10.1 8.7 Corrected Calcium 10.1 8.8 Magnesium 1.6 Total Bilirubin 0.4 0.3 AST 17 15 ALT < 7 L < 7 L Alkaline Phosphatase 102 79 D Total Protein 7.8 6.2 Albumin 4.8 3.9 D Globulin 3.0 2.3 Albumin/Globulin Ratio 1.6 1.7 Lipase 99 H Ur Collection Type Clean Catch Urine Color Yellow Urine Clarity Turbid A Urine pH 6.5 Ur Specific [place] 1.022 Urine Protein 1+ A Urine Glucose (UA) Negative Urine Ketones Negative Urine Blood Trace Urine Nitrite Positive Urine Bilirubin Negative Urine Urobilinogen (Auto) Negative Ur Leukocyte Esterase Positive Urine RBC < 1 Urine WBC 0 Ur Squamous Epith Cells 0 Urine Bacteria None Quality Measures Quality Measures VTE prophylaxis Advance care planning discussed with:: patient Assessment & Plan Assessment Current Active Medications: Generic Name Dose Route Start Last Admin Trade Name Cruz PRN Reason Stop Dose Admin Lactated Ringer's 1,000 mls @ 75 mls/hr 08/31/25 22:26 08/31/25 23:51 Lactated Ringers IV 09/02/25 01:05 75 mls/hr .[id number] EVGENY Administration Ondansetron HCl 4 mg 08/31/25 22:07 08/31/25 23:18 Ondansetron Inj 2 Mg/Ml Inj 2 Ml IVP 09/30/25 22:06 4 mg Q6H PRN Administration NAUSEA OR VOMITING Protocol Plan 70-year-old female with a history of acoustic neuroma (2004 resection), right hip fracture repair, endometrial cancer in remission (post-hysterectomy, chemoradiation), 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 #Small bowel obstruction (resolved) - History of chemoradiation, multiple ureteral repairs, diverting colostomy. - Presented with 2-day history of nausea and vomiting, total of 2 episodes. - Patient has risk factor of multiple abdominal surgeries. - Patient also endorsed decreased colostomy and urostomy output for the past 2 weeks. - CTAP: Small bowel obstruction pattern. - Bolus of 1L NS given in ED. Plan: * Resolved with small bowel series. Abdomen x-ray showed contrast is now present almost entirely in the colon, negative for small bowel obstruction, no further films are needed. * Continue maintenance fluids. * Discontinue NG tube. * Start clear liquid diet, advance diet as tolerated. #Prerenal BERTRAND on CKD stage IIIa - Baseline creatinine is 1.3 as of 08/21/2025. - Creatinine at the time of admission is 1.5 - eGFR 45 - Likely secondary to decreased oral intake versus dehydration versus volume loss. Plan: * Will continue maintenance fluids and monitor renal panel. * Avoid nephrotoxins. * Renally dose meds as appropriate. * Monitor urine output closely. * Monitor for signs of volume overload or uremic symptoms. #Leukocytosis (resolved) - Likely from hemoconcentration - On admission, WBC 11.1 --> 6.4. Plan: * Monitor CBC and for fevers. #Chronic normocytic anemia - Patient presented with hemoglobin 11.7. - Appears to be ongoing issue, MCV normal. - Likely secondary to anemia of chronic disease secondary to endometrial cancer versus nutritional deficiency. - May also be dilutional because the patient received fluids in the ED. - No signs of active bleed at this time. Plan: * No direct intervention at this time. * Transfuse if hemoglobin below 7. * Monitor vital signs. #Endometrial cancer with metastasis to colon #Status post hysterectomy in 2011 #Status post colectomy, colostomy #Status post urostomy Health Maintenance Disposition: med surg, SBP resolved, advance diet as tolerated. DVT prophylaxis: SCDs GI prophylaxis: Pantoprazole 40 mg IV daily Diet: clear liquid diet [place]: none, urostomy present Lines: Peripheral IV CODE STATUS: FULL --- Patient plan of care was discussed with the senior resident, Dr. Carlito Callaway, and attending physician, Dr. Kerr. Christa Lainez DO PGY-1
[2025-09-01] MEDS: RINGERS LACTATED 1000 ML 1,000 ML 75 ML IV (13:52)
--- NOTE | 2025-09-01 14:34 | PC.SS ---
Huyen Dunne is a 70-year-old female admitted to Med Surg for SBO. SS conducted bedside contact with the patient to complete initial assessment and to discuss discharge planning. Role and reason explained. Patient confirmed demographic information. Patient identifies Carmen Coronel [phone] as her surrogate decision maker. Pt states she is able to complete all ADL?s independently. No need for any source of DME. Pts PCP is Dr. Kulkarni. Pharmacy of choice is [facility]. Discharge options discussed and the pt wishes to return home.? Family will provide transportation upon DC. No further intervention required at this time, delinquency prevention social worker would be available to address any further concerns. DC Plan: Home Contact: PrietoCarmen Address: Confirmed on face sheet PCP: Shad
--- NOTE | 2025-09-01 15:11 | PC.SS ---
Rounding: NGT in place, small bowel series, DC plan home
[2025-09-02] VITALS: BP 128/77; PULSE 71; RESP 16; TEMP 36.2; O2SAT 94
[2025-09-02 04:00] VITALS: BP 120/76; PULSE 62; RESP 16; TEMP 36.2; O2SAT 96
[2025-09-02 05:52] LABS: Basophils # (Auto) 0.0 Thou/mm3 (0.0-0.2); Basophils % (Auto) 1 % (0-2.5); Eosinophils # (Auto) 0.1 Thou/mm3 (0.0-0.5); Eosinophils % (Auto) 2 % (0-10); Hematocrit 30.4 % (36.0-46.0); Hemoglobin 9.6 g/dL (12.0-16.0); Immature Granulocytes Auto 0.01 Thou/mm3 (0.00-0.00); Lymphocytes # (Auto) 0.8 Thou/mm3 (1.0-4.8); Lymphocytes % (Auto) 14 % (10-50); Mean Corpuscular HGB Conc 31.6 g/dl (31.0-37.0); Mean Corpuscular Hemoglobin 26.7 pg (25.0-35.0); Mean Corpuscular Volume 84 fL (80-100); Monocytes # (Auto) 0.6 Thou/mm3 (0.0-0.8); Monocytes % (Auto) 10 % (0-12); Neutrophils # (Auto) 4.4 Thou/mm3 (1.8-7.7); Neutrophils % (Auto) 73 % (37-80); Nucleated Red Blood Cell # 0.00 Thou/mm3 (0.00-0.00); Nucleated Red Blood Cell % 0 /100 WBC (0); Platelet Count 295 Thou/mm3 (140-440); RDW Standard Deviation 44.8 fL (36.4-46.3); Red Blood Count 3.60 Miln/mm3 (4.00-5.20); White Blood Count 6.0 Thou/mm3 (3.6-11.0)
[2025-09-02 06:33] LABS: Alanine Aminotransferase < 7 U/L (10-49); Albumin, Serum 3.6 gm/dL (3.4-4.8); Albumin/Globulin Ratio 1.6 (1.2-2.2); Alkaline Phosphatase 76 U/L (46-116); Anion Gap 8 (7-16); Aspartate Amino Transferase 12 U/L (0-34); BUN/Creatinine Ratio 10 Ratio (12-20); Bilirubin,Total 0.4 mg/dL (0.3-1.2); Blood Urea Nitrogen 12 mg/dL (9-23); Calcium 8.8 mg/dL (8.3-10.6); Calcium (Corrected) 9.1 mg/dL (8.5-10.1); Carbon Dioxide 26.6 mMol/L (20.0-31.0); Chloride 109 mMol/L (98-107); Creatinine (Component) 1.2 mg/dL (0.6-1.3); Estimated Creatinine Clearance 41.8 mL/min (>60); Globulin 2.3 gm/dL (2.3-3.5); Glucose 89 mg/dL (74-106); Magnesium 1.6 mg/dL (1.6-2.6); Osmolality,Calculated 285 (275-295); Phosphorous 2.7 mg/dL (2.4-5.1); Potassium 3.3 mMol/L (3.4-5.1); Sodium 144 mMol/L (136-145); Total Protein 5.9 gm/dL (5.7-8.2); eGFR 49 See Note
[2025-09-02 08:00] VITALS: BP 108/73; PULSE 74; RESP 16; TEMP 36.1; O2SAT 99
[2025-09-02] MEDS: Magnesium Sulfate 4 GM Ivpb 4 GM/50 ML BAG IV (09:20)
--- NOTE | 2025-09-02 09:56 | ESDS_ITS ---
<Statement entered by Yazmin Kerr MD - 09/11/25 08:26> I reviewed above note and agree with findings and plans. I have also personally examined the patient with medicine team and went over assessment and plan with medical team including internet security specialist and resident physician. <Statement entered by Derian Aquino MD - 09/02/25 17:55> In summary: A 70-year-old female PMHx of endometrial cancer, multiple abdominal surgeries and urostomy revision admitted for SBO which have since resolved. She also had a mild BERTRAND which has also resolved. Currently tolerating oral intake and was discharged with advised to increase water intake and MIRALAX as needed for constipation. I?ve reviewed the note and agree with this assessment and plan, with the exceptions outlined above. I personally went over the labs, imaging, home medications, and prior records, and examined the patient. The case was also reviewed with the attending physician. Please note: this document was transcribed using voice recognition technology; minor inaccuracies may be present. Derian Aqiuno DO PGY II Planned Discharge Date 09/02/25 DS: Providers Provider Date of admission: 08/31/25 22:07 Primary care physician: Santiago Kulkarni MD Admitting Provider: Lane Navarro MD Attending Provider on Admission: Lane Navarro MD Attending Provider on DC: Yazmin Kerr MD Discharging Provider: Christa Lainez DO Anticipated date of discharge: 09/02/25 DS: Diagnosis Problem List Completed Was Problem List Reviewed/Reconciled?: Yes Hospital Course Hospital Course Hospital course: 70-year-old female with a history of endometrial cancer, multiple abdominal surgeries, and urostomy revisions, was admitted for a small bowel obstruction after presenting with nausea, vomiting, and decreased output from her colostomy and urostomy. CT abdomen/pelvis confirmed SBO. She was managed with IV fluids, NG tube placement, and bowel decompression. The SBO resolved with gastrografin small bowel series with contrast reaching the colon on abdominal x-ray, and the NG tube was removed. Her prerenal BERTRAND was managed with fluids. She was started on a clear liquid diet and advanced as tolerated. The patient was stable at discharge with improved colostomy output. Patient is medically and physically stable for discharge. Diagnosis: #Small bowel obstruction #Prerenal BERTRAND on CKD stage IIIa #Leukocytosis #Chronic normocytic anemia #Endometrial cancer with metastasis to colon #Status post hysterectomy in 2012 #Status post colectomy, colostomy #Status post urostomy Discharge Plan: * Follow-up with PCP within 1-2 weeks of discharge. * Recommended [id number] MIRALAAX as needed to prevent constipation, please discuss with your doctor. * Continue taking medications as prescribed below. * Return to Emergency Room if symptoms persist, worsen, or new symptoms develop. ---- Case discussed with my senior resident Dr. Aquino. Case discussed with my attending Dr. Kerr. Christa Lainez DO PGY 1 Status at Discharge Overall status at discharge: patient is back to baseline Time Spent with Patient Time attestation: Total time spent providing and/or coordinating discharge services: Time spent: Greater than 30 minutes Exam Vital Signs Temp Pulse Resp BP Pulse Ox O2 Del Method 97.0 F 74 16 108/73 99 Room Air 09/02/25 08:00 09/02/25 08:00 09/02/25 08:00 09/02/25 08:00 09/02/25 08:00 09/02/25 08:00 Narrative Exam Physical Exam General: Slight cachexia, collarbone visualized, slight temporal wasting. Awake and in no acute distress. Conversational and non-toxic appearing. HEENT: Normocephalic, atraumatic, extraocular movements intact, pupils equal and reactive to light. Heart: Grade 1/6 systolic ejection murmur on left sternal boder. Regular rate and rhythm. No murmurs, rubs or gallops. Lungs: Clear to auscultation with no wheezing or crackles bilaterally. Non- labored respirations, symmetric chest rise, no use of accessory muscles. Abdomen: Colostomy and urostomy bag in place. Colostomy bag with good activity. Urostomy bag has clear output. Otherwise abdomen is soft, nondistended, nontender. No guarding or rebound tenderness. Neurologic: Alert and oriented x3, no gross neurological deficit, and patient able to move all 4 extremities. Extremities: Left ankle slightly more swollen than right ankle, no significant edema. 2+ radial and dorsalis pedis pulses bilaterally. Skin: Warm and dry without rashes. Psychiatric: Cooperative, appropriate mood and affect. Discharge Plan Plan Patient Disposition: HOME (Self Care) Care Plan Goals: * Follow-up with PCP within 1-2 weeks of discharge. * Recommended [id number] MIRALAAX as needed to prevent constipation, please discuss with your doctor. * Continue taking medications as prescribed below. * Return to Emergency Room if symptoms persist, worsen, or new symptoms develop. Prescriptions/Referrals Prescriptions/Med Rec: No Action No Known Home Medications Referrals: Santiago Kulkarni MD [Primary Care Provider, Family Practice] Patient/Caregiver Discharge Instructions Print Language: Wolof Stand Alone Forms: [employer] Award Info., Patient Portal Info Letter Discharge Order Discharge Orders: Discharge (Routine); Ordered 09/02/25 Ordered By: Christa Lainez Quality Discharge Quality Measures VTE prophylaxis
[2025-09-02 12:00] VITALS: BP 129/79; PULSE 66; RESP 17; TEMP 36.1; O2SAT 98
== END 2025-09-02 13:33 | disposition home or self-care (01) | DRG 389 ==
LOC: SERX 22:29 → SERHOLD 22:32 → S3NX 09-01 06:07
PROVIDERS: Physician Assistant; Admitting Provider Student in an Organized Health Care Education/Training Program; Emergency Provider Emergency Medicine; PCP Family Medicine; Visit Provider Student in an Organized Health Care Education/Training Program
DX: K56.601 Complete intestinal obstruction, unspecified as to cause (principal); N17.9 Acute kidney failure, unspecified; Z92.3 Personal history of irradiation; Z92.21 Personal history of antineoplastic chemotherapy; D72.829 Elevated white blood cell count, unspecified; Z85.42 Personal history of malignant neoplasm of other parts of uterus; D63.1 Anemia in chronic kidney disease; Z87.440 Personal history of urinary (tract) infections; N18.31 Chronic kidney disease, stage 3a; Z93.2 Ileostomy status; Z90.710 Acquired absence of both cervix and uterus; Z90.49 Acquired absence of other specified parts of digestive tract
CPT/HCPCS: 36415; 74018; 74177; 74250; 80053; 81001; 83690; 83735; 84100; 85025; 96360; 99284; A4649; J2405; J3475; J7030; J7120; Q0162; Q9963; Q9967; A9270